=== PATIENT | female | born 1955 | race Caucasian/White ===

== ENCOUNTER 2019-06-15 13:07 | Observation (INO) ==
[2019-06-15] MEDS ORDERED: Ringers Solution, Lactated 1,000 ML IVC SCH (14:00)
[2019-06-15] MEDS ORDERED: Albuterol 2.5 MG/3 ML NEBULIZER IH ONE (14:00)
[2019-06-15] MEDS ORDERED: CeFAZolin Syr 2,000MG/20 ML 2,000 MG/20 ML SYRINGE IVPB ONE (14:00)
--- NOTE | 2019-06-15 14:00 | Anesthesia Evaluation PreOp ---
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 History: Other (anxiety) Other Medical History: Diabetes Type II, Thyroid (hypo), GERD Anesthesia History: Past Anesthesia (cisco, skin cancer left leg, left heel), Problems (mild PONV) : No Alcohol Use: none Drug use: none Medications and Allergies Atorvastatin [Lipitor] 40 mg PO HS 12/18/16 [History] Carvedilol 12.5 mg PO BID 12/18/16 [History] Omeprazole 20 mg PO QPM 12/18/16 [History] Levothyroxine [Synthroid] 25 mcg PO QAM 07/01/18 [History] Albuterol Sulfate 2.5 mg IH TID PRN 08/03/18 [History] Diclofenac Sodium [Voltaren] 1 applic TP BID PRN 08/03/18 [History] Loratadine [Allergy Relief] 10 mg PO QAM 08/03/18 [History] Meloxicam 15 mg PO DAILY 08/03/18 [History] Metformin HCl 1,000 mg PO BID 08/03/18 [History] Tramadol HCl [Ultram] 50 mg PO Q6H PRN 04/10/19 [History] Amlodipine Besylate 10 mg PO QAM 06/15/19 [History] Gabapentin [Neurontin] 300 mg PO BID 06/15/19 [History] Losartan Potassium [Cozaar] 100 mg PO QAM 06/15/19 [History] Multivitamin with Iron [Multivitamins with Iron] 1 tab PO DAILY 06/15/19 [History] Allergy/AdvReac Type Severity Reaction Status Date / Time oxycodone [From Percocet] Allergy Hives, Verified 06/15/19 13:40 Vomiting hydrochlorothiazide AdvReac Shakiness, Verified 06/15/19 13:40 Shortness of Breath meperidine [From Demerol] AdvReac Nausea Verified 06/15/19 13:40 - Meds/Allergy Pre-op Review Medications Reviewed: Yes Allergies Reviewed: Yes Beta Blockers on Current Med List: Yes (carvedilol) If Beta Blockers taken, Date/Time (Last Dose taken): 1000 Anesthesia Results - Labs Laboratory Tests 05/29/19 06/01/19 06/01/19 15:26 13:42 13:42 WBC Hgb Hct Plt Count PT 11.0 INR 1.0 APTT 34.5 Sodium 137 Potassium 4.3 Chloride 105 Carbon Dioxide 26 BUN 25 H Creatinine 1.07 Est GFR (Non-Af Amer) 52 L Hemoglobin A1c 6.7 H 06/01/19 13:42 WBC 8.5 Hgb 11.8 Hct 38.7 Plt Count 253 PT INR APTT Sodium Potassium Chloride Carbon Dioxide BUN Creatinine Est GFR (Non-Af Amer) Hemoglobin A1c - Imaging EKG: report reviewed (SINUS RHYTHM POSSIBLE ANTERIOR MYOCARDIAL INFARCTION, OF INDETERMINATE AGE) Additional studies: 04/2018 Stress Impressions: Negative dobutamine stress ECG and echocardiogram for ischemia. Findings: Study Quality * Technically adequate exam. Resting Echocardiogram * LVEF 60%. * Normal left ventricular structure and function. Stress Echocardiogram * Normal sinus rhythm. * No arrhythmias noted prior to exam beginning. * Negative for ischemia at the level of heart rate achieved. * No arrhythmias during exercise or recovery. * The patient demonstrated a normal blood pressure response. * Appropriate increase LVEF with stress. * No chest pain during stress procedure. Anesthesia Exam Vital Signs/O2 Sat/Glucose, Most Recent Temp Pulse Resp BP Pulse Ox 98.4 F 86 18 112/72 97 06/15/19 13:20 06/15/19 13:20 06/15/19 13:20 06/15/19 13:20 06/15/19 13:20 Blood Glucose* 110 Weight: 99 kg NPO (# of Hours): > 8 hr - HEENT Pupil (Motor): Pupils equal Mallampati: II Teeth: Normal - BATTERY PLATE REMOVER LOC: Oriented - Cardiac Rhythm: Regular Murmur: None - Pulmonary Breath Sounds: bilateral Clear Respiratory Effort: Symmetrical Anesthesia Assess/Plan ASA Score: 3 (HTN, COPD, RAVINDRA, BMI 36.6) Level of consciousness: Cooperative, Oriented Anesthetic Plan: Regional Nerve Block, MAC, Spinal Regional Nerve Block Plan: Adductor canal Monitoring Plan: Standard Monitors Recovery Plan: PACU
[2019-06-15] MEDS ORDERED: Scopolamine Patch 1.5 MG PATCH.TD72 TD ONE (14:10)
[2019-06-15] MEDS ORDERED: Gabapentin 300 MG CAPSULE PO ONE (14:10)
[2019-06-15] MEDS ORDERED: Celecoxib 100 MG CAPSULE PO ONE (14:10)
[2019-06-15] MEDS ORDERED: Acetaminophen IV 1,000 MG/100 ML INFUS..BTL IVPB ONE (14:10)
[2019-06-15] MEDS ORDERED: Ondansetron 4 MG/2 ML VIAL IVP ONE (14:12)
[2019-06-15] MEDS ORDERED: *HR* Promethazine 25 MG/ML VIAL IVP PRN (14:12)
[2019-06-15] MEDS ORDERED: *HR* Labetalol 20 MG/4 ML SYRINGE IVP PRN (14:12)
[2019-06-15] MEDS ORDERED: *HR* OxyCODONE ER (12 HR) 10 MG TABLET PO ONE (14:14)
--- NOTE | 2019-06-15 15:32 | History & Physical Report ---
Date of Encounter: 06/15/19 Time of Encounter: 15:31 24 Hour HP Update - Instructions Instructions: If the History and Physical is less than 30 days old and was completed prior to A.M. admission and or procedure and has NOT been updated on calendar day of procedure please complete this update prior to performing procedure. - Update Patient reports changes in Medical Condition: No Changes in examination, assessment, or condition: No Changes in Medication: No Preop tests/diagnostics Reviewed: Yes Surgery Remains Indicated: Yes Consent for Planned Operative Procedure(s) Verified: Yes - Pre-Operative Checklist Preoperative Checklist Indicated: No Prophylactic Antibiotic Ordered: Yes Is VTE Prophylaxis Indicated?: Yes
[2019-06-15] MEDS ORDERED: Lidocaine/EPI 1:200k 1% PF 10 ML VIAL ONE (15:43)
[2019-06-15] MEDS ORDERED: ROPIVACAINE/PF/NS 0.25% 1 EACH SYRINGE INTRAART ONE (15:44)
[2019-06-15] MEDS ORDERED: Ropivacaine/PF 0.5% 24.62 ML, EPINEPHrine 0.25 MG, Ketorolac 15 MG, Water for inj. (ste... IR ONE (15:45)
[2019-06-15] MEDS ORDERED: *HR* Midazolam HCl 2 MG/2 ML VIAL ONE ×2 (15:45→17:02)
[2019-06-15] MEDS ORDERED: *HR* FentaNYL (PF) 100 MCG/2 ML VIAL ONE ×2 (15:45→17:02)
--- NOTE | 2019-06-15 15:49 | Discharge Summary ---
<Dwayne Araya M - Last Filed: 06/15/19 15:44> Date of Encounter: 06/15/19 - Discharge Diagnosis (1) Arthritis of right knee Priority: Primary Status: Acute (2) HTN (hypertension) Priority: Secondary Status: Acute Qualifiers: Hypertension type: unspecified Qualified Code(s): I10 - Essential (primary) hypertension (3) Diabetes Priority: Secondary Status: Acute Qualifiers: Diabetes mellitus complication status: without complication (4) RAVINDRA (obstructive sleep apnea) Priority: Secondary Status: Acute - Hospital Course Hospital course: Ms. Umaña is a 63 year old female - Time Spent with Patient Total time spent providing and/or coordinating discharge services: - Discharge Medications Prescriptions: New Docusate [Colace] 100 mg PO BID 5 Days #10 capsule Acetaminophen [Pain Relief] 500 mg PO Q6H 7 Days #28 tablet Tramadol HCl [Ultram] 50 mg PO QID PRN 5 Days #20 tab PRN Reason: Pain Aspirin Enteric Coated [Aspirin EC] 325 mg PO DAILY 10 Days #10 tablet.dr Continued Levothyroxine [Synthroid] 25 mcg PO QAM Loratadine [Allergy Relief] 10 mg PO QAM Albuterol Sulfate 2.5 mg IH TID PRN PRN Reason: Shortness Of Breath Metformin HCl 1,000 mg PO BID Amlodipine Besylate 10 mg PO QAM Gabapentin [Neurontin] 300 mg PO BID Losartan Potassium [Cozaar] 100 mg PO QAM Multivitamin with Iron [Multivitamins with Iron] 1 tab PO DAILY Carvedilol 12.5 mg PO BID Atorvastatin [Lipitor] 40 mg PO HS Omeprazole 20 mg PO QPM Discontinued Meloxicam 15 mg PO DAILY Diclofenac Sodium [Voltaren] 1 applic TP BID PRN PRN Reason: Pain Tramadol HCl [Ultram] 50 mg PO Q6H PRN PRN Reason: Pain Home Medications: Atorvastatin [Lipitor] 40 mg PO HS 12/18/16 [History] Carvedilol 12.5 mg PO BID 12/18/16 [History] Omeprazole 20 mg PO QPM 12/18/16 [History] Levothyroxine [Synthroid] 25 mcg PO QAM 07/01/18 [History] Albuterol Sulfate 2.5 mg IH TID PRN 08/03/18 [History] Loratadine [Allergy Relief] 10 mg PO QAM 08/03/18 [History] Metformin HCl 1,000 mg PO BID 08/03/18 [History] Acetaminophen [Pain Relief] 500 mg PO Q6H 7 Days #28 tablet 06/15/19 [Rx] Amlodipine Besylate 10 mg PO QAM 06/15/19 [History] Docusate [Colace] 100 mg PO BID 5 Days #10 capsule 06/15/19 [Rx] Gabapentin [Neurontin] 300 mg PO BID 06/15/19 [History] Losartan Potassium [Cozaar] 100 mg PO QAM 06/15/19 [History] Multivitamin with Iron [Multivitamins with Iron] 1 tab PO DAILY 06/15/19 [History] Tramadol HCl [Ultram] 50 mg PO QID PRN 5 Days #20 tab 06/15/19 [Rx] Aspirin Enteric Coated [Aspirin EC] 325 mg PO DAILY 10 Days #10 tablet. 06/19/19 [Rx] Allergies/Adverse Reactions: Allergy/AdvReac Type Severity Reaction Status Date / Time oxycodone [From Percocet] Allergy Nausea, Verified 06/15/19 15:33 Vomiting hydrochlorothiazide AdvReac Shakiness, Verified 06/15/19 13:40 Shortness of Breath meperidine [From Demerol] AdvReac Nausea Verified 06/15/19 13:40 Primary care physician: Franchesca Noe CNP Labs on day of discharge: Labs from last 24 hours 06/15/19 06/15/19 14:36 13:17 POC Glucose 110 H Blood Type A POSITIVE Antibody Screen NEGATIVE - Patient Status Disposition: Home Health Service Condition: Good - Discharge Instructions Follow Up With: Franchesca Noe CNP [Primary Care Provider] - Additional Instructions: Discharge Instructions: Total Knee Replacement Please call [facility] ([phone]), your Primary Care Physician, or report to the Emergency Room if you have any of the following symptoms: Nausea, vomiting, fever greater that 101.5, swelling, chest pain, shortness of breath, increased pain/redness/drainage/odor for your incision site, numbness/tingling, or any other concerning symptoms. ACTIVITY:Weight-bearing as tolerated. You may progress off support (crutches or walker) as tolerated. Incentive Spirometer 10 times an hour. MEDICATIONS: Upon discharge resume your home medications. Take all the medications as prescribed. Take a stool softener if taking narcotic pain medications. Stool softeners are only effective if you drink enough fluids. Drink 6-8 glass of water or fluids a day, unless this is not allowed for another health problem. Despite using stool softeners, if you haven't had a bowel movement in 3 days, please switch to a gentle laxative. Gentle laxatives are sold over the counter. You should have a bowel movement within 24 hours, if not call the office. You will be discharged from the hospital with a prescription for pain medication . You are encouraged to decrease the use of narcotic pain medication as tolerated. Should you require a refill, please call the office. [facility] prescribes narcotic pain medication for only 4-6 weeks after surgery. If you require pain medication beyond this time period, you may be referred to your Primary Care Physician or to the Pain Clinic for further evaluation. Plan ahead for refills on pain medication as many narcotics either need to be picked up at the office or mailed. It is best to call 48-72 hours in advance of needing a prescription refill so you don't run out of medication. To help control the post-operative pain, you may take NSAIDs (Aleve,Advil, Motrin, Ibuprofen, Naprosyn) or Tylenol as prescribed on the bottle in addition to the pain medication. ANTICOAGULATION (blood thinners): Continue your Aspirin, Lovenox or Coumadin as prescribed to help prevent a blood clot in the leg or in the lungs. As long as your incision remains dry and you tolerate the NSAIDs (Aleve, Advil, Motrin, ibuprofen, naprosyn), it is OK to use the NSAIDS while you are taking your anticoagulation medication. Should your incision start to drain, stop the NSAID and contact our office. Common symptoms of blood clot in the legs include: localized pain, swelling, calf tenderness, redness or discoloration of the skin. Blood clot in the lung symptoms include: shortness of breath, rapid pulse, sweating, and chest pain that worsens with deep breathing, coughing up blood, lightheadedness, feelings of anxiety. If you experience any of these symptoms notify your physician immediately, go to the emergency room, or if having trouble breathing, call 911. WOUND CARE: Leave the dressing on for 7 to 10days. You may change the dressing if it becomes saturated greater than 50%. Do not get the dressing wet at anytime. Wash your hands with antibacterial soap, rinse and dry prior to any wound care. If you have brent the visiting nurse or rehab facility can remove the stapes 10-14 days after surgery and place steri-strips across the wound. Leave the steri-strips in place until they fall off on their won. You may let water from the shower run on top of the steri-strips. If you do not have a visiting nurse or rehab facility, you will need to return to the office at 10-14 days for the brent to be removed. If you have itching or redness around the dressing call the office. FOLLOW-UP: Please follow up with your surgeon in the orthopedic clinic in 4 weeks from the day of surgery. If you have brent that need to be removed, you will need to come back to the office in 10-14 days from the day of surgery. <Ella Garibay E - Last Filed: 06/19/19 16:59> Orders not resulted at time of discharge: Pending orders 06/15/19 18:13 Surgical Pathology [PTH] Routine Date of Encounter: 06/19/19 Time of Encounter: 16:53 - Discharge Diagnosis (1) Status post total right knee replacement Priority: Primary Status: Acute (2) Arthritis of right knee Priority: Primary Status: Chronic (3) Thyroid disorder Priority: Secondary Status: Chronic (4) Diabetes Priority: Secondary Status: Chronic Qualifiers: Diabetes mellitus type: type 2 Diabetes mellitus assistant terminal manager insulin use: unspecified assistant terminal manager insulin use status Diabetes mellitus complication status: with other specified complication Qualified Code(s): E11.69 - Type 2 diabetes mellitus with other specified complication (5) HTN (hypertension) Priority: Secondary Status: Chronic Qualifiers: Hypertension type: unspecified Qualified Code(s): I10 - Essential (primary) hypertension (6) RAVINDRA on CPAP Priority: Secondary Status: Chronic (7) Obesity Priority: Secondary Status: Chronic Qualifiers: Obesity type: unspecified obesity type Obesity classification: unspecified obesity classification Serious obesity comorbidity presence: unspecified whether serious comorbidity present Qualified Code(s): E66.9 - Obesity, unspecified - Hospital Course Hospital course: Ms. Umaña is a 63 year old female s/p Right robotic-assisted Total knee replacement [arthritis] 06/15/19 The patient's postoperative course was complicated by decreased renal function likely related to dehydration secondary to nausea. Patient was given gentle IV hydration with resolution of apparent renal function depression. Patient's nausea slowly seemed to improve with medication change to Tramadol. Progressed from intravenous analgesic needs to oral analgesic needs only. Remained neurovascularly intact and mobilized satisfactorily. All radiographic studies were satisfactory. Patient course and disposition discussed with Dr. Raymond. Patient is discharged to home with home health with plan for rehabilitation and outpatient orthopedic follow up has been arranged. - Time Spent with Patient Total time spent providing and/or coordinating discharge services: Date of admission: 06/16/19 06:56 Primary care physician: Franchesca Noe CNP Consults: 06/15/19 20:06 Consult to Nutrition [CONS] Routine Comment: Consulting Provider: NUTRITION Reason for Dietary Consult: Other Other:: Proper nutrition to facilitate wound healing Consult to Occupational Therapy [CONS] Routine Comment: Evaluate, develop and implement POC Reason for Consult: post knee surgery Does patient have active BEDREST order?: No Is patient medically & hemodynamically stable?: Yes Consult to Orthopedic Navigator [CONS] [CONS] Routine Consult to Physical Therapy [CONS] Routine Comment: Evaluate, develop and impliment POC Reason for Consult: post knee surgery Does patient have active BEDREST order?: No Is patient medically & hemodynamically stable?: Yes Consult to Anesthesiologist Assistant [CONS] Routine Reason for SW Consult: post op joint replacement RT Post Op Consult [CONS] Routine Discharging clinician: Dhruv Raymond Anticipated date of discharge: 06/19/19 - VTE Documentation of Mechanical Device: Venous foot pump, device Labs on day of discharge: Labs from last 24 hours 06/17/19 06/17/19 06/17/19 07:01 05:48 05:48 WBC 11.1 RBC 3.63 L Hgb 10.1 L Hct 32.7 L MCV 90.1 MCH 27.8 L MCHC 30.9 L RDW 14.4 Plt Count 206 MPV 11.1 Immature Gran % 0.3 Seg Neutrophils % 63.5 Lymphocytes % 26.6 Monocytes % 8.8 Eosinophils % 0.5 Basophils % 0.3 Neutrophils # 7.1 Lymphocytes # 3.0 Monocytes # 1.0 Eosinophils # 0.1 Basophils # 0.0 Sodium 137 Potassium 4.0 Chloride 101 Carbon Dioxide 26 BUN 29 H Creatinine 1.24 H Est GFR ( Amer) 53 L Est GFR (Non-Af Amer) 44 L BUN/Creatinine Ratio 23 Glucose 125 H POC Glucose 109 H Calculated Osmolality 291 Calcium 8.7 06/16/19 06/16/19 06/16/19 19:11 16:47 11:45 WBC RBC Hgb Hct MCV MCH MCHC RDW Plt Count MPV Immature Gran % Seg Neutrophils % Lymphocytes % Monocytes % Eosinophils % Basophils % Neutrophils # Lymphocytes # Monocytes # Eosinophils # Basophils # Sodium Potassium Chloride Carbon Dioxide BUN Creatinine Est GFR ( Amer) Est GFR (Non-Af Amer) BUN/Creatinine Ratio Glucose POC Glucose 110 H 105 H 147 H Calculated Osmolality Calcium 06/16/19 07:35 WBC RBC Hgb Hct MCV MCH MCHC RDW Plt Count MPV Immature Gran % Seg Neutrophils % Lymphocytes % Monocytes % Eosinophils % Basophils % Neutrophils # Lymphocytes # Monocytes # Eosinophils # Basophils # Sodium Potassium Chloride Carbon Dioxide BUN Creatinine Est GFR ( Amer) Est GFR (Non-Af Amer) BUN/Creatinine Ratio Glucose POC Glucose 185 H Calculated Osmolality Calcium - Impressions ITS Impressions Knee X-Ray 06/15/19 01:00 IMPRESSION: Total knee arthropasty without acute hardware complication. D/ / Florin Nevarez MD / Florin Nevarez MD Interpreting Provider: Florin Nevarez MD - Patient Status Functional capacity at discharge: uses cane/walker Overall status at discharge: patient is progressing back to baseline - Diet and Activity Activity: as per physical therapy Diet: advance to your usual diet
--- NOTE | 2019-06-15 16:17 | Anesthesia Procedures ---
Date of Encounter: 06/15/19 Time of Encounter: 16:07 Procedures: Anesthesia - Epidural/Spinal Patient ID/Chart reviewed: Yes Patient examined: Yes Supplemental Oxygen: Nasal Cannula Supplemental Oxygen Rate (L/min): 2 Sedation: Versed (mg): 2 Sedation: Fentanyl (mcg): 100 Site Prep: Aseptic Technique, Sterile prep and drape, Povidone-Iodine 1% Patient position: upright Local Anesthetic: Lidocaine 1% Amount of Local Anesthetic used: 3 Interspace Used: L4-L5 Blood: No CSF: Yes (SPINAL ) Paresthesia: No Spinal Needle Gauge: 22 (PARAMEDIAN APPROACH) Spinal Dose: BUPIVICAINE 0.5% PF WITH EPI WASH Vitals + FHT's: Vital Signs - Last 8 Hours Temp Pulse Resp BP Pulse Ox 06/15/19 16:13 73 16 121/73 98 06/15/19 15:58 77 15 138/86 94 06/15/19 14:13 18 112/72 97 06/15/19 13:20 98.4 F 86 18 112/72 97 Intake and Output 06/15/19 06/15/19 06/15/19 07:59 15:59 23:59 Other: Weight 99.79 kg Blood Glucose* 110 Patient Weight 06/15/19 23:59 Weight 99.79 kg - Nerve Block Procedure Date: 06/15/19 Time: 16:07 Allergies/Adv Reactions: MULTIPLE SEE CHART Pre-op Diagnosis: RIGHT TOTAL KNEE ARTHRITIS Surgical Procedure: RIGHT TOTAL KNEE Checklist: Correct Patient Identifier, Correct procedure, History checked Correct side: Right Blood Thinner: No Monitor Applied: EKG, BP, Pulse Oximetry Supplemental Oxygen via Nasal Cannula (L/min): 2 Sedation: Versed (mg): 2 Sedation: Fentanyl (mcg): 100 Indication: Post Op Analgesia Pre-op Neuro Deficits: No Block Type: Other (ADDUCTOR CANAL ) Catheter placed: No Sterile Technique: Yes Ultrasound used: Yes Anatomy identified: Yes Visual spread of Local: Yes Neuro Stimulation: No Smooth Injection of Local: Yes Pain with Injection of Local: No Prep: Chlorhexadine Needle: 21 x 100 mm Stimuplex Local: Ropivacaine (0.25% ) Volume (cc): 20 Number of Attempts: 1 Complications: None/effective block Vitals: Vital Signs - Last 8 Hours Temp Pulse Resp BP Pulse Ox 06/15/19 16:13 73 16 121/73 98 06/15/19 15:58 77 15 138/86 94 06/15/19 14:13 18 112/72 97 06/15/19 13:20 98.4 F 86 18 112/72 97 Intake and Output 06/15/19 06/15/19 06/15/19 07:59 15:59 23:59 Other: Weight 99.79 kg Blood Glucose* 110 Patient Weight 06/15/19 23:59 Weight 99.79 kg
[2019-06-15] MEDS ORDERED: Ondansetron 4 MG/2 ML VIAL ONE ×2 (16:19→17:02)
[2019-06-15] MEDS ORDERED: *HR* PHENYLEPHRINE 1,000 MCG/10 ML SYRINGE IVP ONE ×2 (16:19→17:15)
[2019-06-15] MEDS ORDERED: Lidocaine HCL 4 ML Topical Solution (Laryng-O-Jet Kit Sterile Pak) TP ONE (17:01)
[2019-06-15] MEDS ORDERED: Ethanol\\Acetic Acid\\Na Ace\\Ben 1,000 ML IRRIG.SOLN IR ONE (17:01)
[2019-06-15] MEDS ORDERED: *HR* Rocuronium Bromide 50 MG/5 ML VIAL ONE (17:02)
[2019-06-15] MEDS ORDERED: *HR* Propofol 200 MG/20 ML VIAL IVP ONE (17:02)
[2019-06-15] MEDS ORDERED: Lidocaine -MPF 2% 2 ML VIAL ONE (17:02)
[2019-06-15] MEDS ORDERED: *HR* Succinylcholine 200 MG/10 ML VIAL IVP ONE (17:02)
[2019-06-15] MEDS ORDERED: Dexamethasone 4 MG/ML VIAL ONE (17:02)
[2019-06-15] MEDS ORDERED: Propofol 500 MG/50 ML INFUS..BTL ONE ×2 (17:07→18:03)
[2019-06-15] MEDS ORDERED: Tranexamic Acid 1,000 MG/10 ML VIAL ONE (17:07)
--- NOTE | 2019-06-15 18:18 | Orthopedic Operative Note ---
Date of procedure: 06/15/19 Pre-op diagnosis: Right knee arthritis Post-op diagnosis: same Procedure: Procedure: Right robotic-assisted Total knee replacement Estimated blood loss: 200 cc Hardware: Metal and polyethylene replacement. [place] Femur: 4 Tibia: 4 TS insert: 9 Patella: 36 Exam Under anesthesia: 26 degree flexion contracture 6 degrees varus as calculated by the robot full flexion and no instability Procedural Notes: Grade 4 arthritic changes all 3 compartments Operative procedure: The patient was brought to the operating room and placed on the operating room table. After general anesthesia was administered the operative knee was examined. Findings were noted in the exam under anesthesia. The operative extremity was prepped and draped in sterile surgical fashion. The patient received IV antibiotics prior to skin incision. A standard midline incision was made centered over the patella. The incision was made through the skin and subcutaneous tissue. A medial parapatellar tendon approach was performed. Care was taken to preserve tissue along the medial aspect of the patella. And to protect the patella tendon. The deep MCL was released off the medial tibia. The infra patella fat pad was excised. The patella was everted and cut was made at the level of the insertion of the quadriceps and patella tendon. The patella was sized the guide was seated and the lug holes are drilled. Knee was brought into flexion. Patient noted to have grade 4 arthritic changes all 3 compartments Steinmann pins were placed in the tibia and the femur for the tibial and femoral arrays respectively. Checkpoints were also placed in the tibia and the femur for calculation purposes. The knee including the femur and the tibial registered. Osteophytes, ACL and PCL were excised at this point. Extension and flexion were assessed with a valgus stress components were adjusted on the computer to balance the knee. Femoral cuts were made first with robotic assistance, these included the anterior cut posterior cuts chamfer cuts. Tibial cut was then performed with robotic assistance as well. Bone fragments were removed, as well as the medial and lateral meniscus. The size 4 femoral guide was seated box cut was made lug holes are drilled. The size 4 tibial tray was seated and prepared with the fin cutter. Trial reduction with the 1 TS Babs revealed extension loss of 1 degree and 1 degree varus full flexion. No varus valgus instability. Trial reduction revealed excellent patella tracking. All trial components were removed all bony surfaces were irrigated. The Tibia was seated followed by the femur, The selected Babs size was seated and secured patella. Patient had similar findings for motion and stability. The knee was closed by the PA. The knee was then irrigated out with 2 L of pulse irrigation. The extensor mechanism was closed with #2 FiberWire suture and #2 PDS suture. The subcutaneous tissue was then irrigated and closed deep with #1 PDS suture superficially with 0 PDS suture and skin was closed with zip tie The patient was then placed in a sterile dressing and a postoperative brace extubated and transferred to recovery room in stable condition. Anesthesia: spinal Surgeon: Dhruv Raymond Was there an assistant pressman present: Yes Computer Builder: Dwayne Araya Estimated blood loss (cc): 200 Disposition: PACU
[2019-06-15] MEDS: *HR* HYDROmorphone (PF) 1 MG/ML SYRINGE IVP PRN ×2 (19:13→19:20)
[2019-06-15 19:45] LABS: Hematocrit 37.6 % (35.3-44.9); Hemoglobin 11.5 g/dL (11.5-15.4)
--- NOTE | 2019-06-15 19:48 | Physician Discharge Referral ---
ExtendedCare Referral Info Transfer To: ECF - CANCEL DOCUMENT - PATIENT GOING HOME WITH HOME HEALTH Provider in Charge: Dr. Dhruv Raymond - Diagnosis (1) Status post total right knee replacement Priority: Primary Status: Acute (2) Arthritis of right knee Priority: Primary Status: Chronic (3) Thyroid disorder Priority: Secondary Status: Acute (4) RAVINDRA on CPAP Priority: Secondary Status: Chronic (5) Obesity Priority: Secondary Status: Chronic (6) Diabetes Priority: Secondary Status: Chronic (7) HTN (hypertension) Priority: Secondary Status: Chronic Expected Duration of Placement: less than 30 days Prognosis: Good Aware of Diagnosis: Patient Aware of Prognosis: Patient - Transfer Medications Prescriptions: Aspirin Enteric Coated [Aspirin EC] 325 mg PO BID 10 Days #20 tablet. [place] Medications: Atorvastatin [Lipitor] 40 mg PO HS 12/18/16 [History] Carvedilol 12.5 mg PO BID 12/18/16 [History] Omeprazole 20 mg PO QPM 12/18/16 [History] Levothyroxine [Synthroid] 25 mcg PO QAM 07/01/18 [History] Albuterol Sulfate 2.5 mg IH TID PRN 08/03/18 [History] Diclofenac Sodium [Voltaren] 1 applic TP BID PRN 08/03/18 [History] Loratadine [Allergy Relief] 10 mg PO QAM 08/03/18 [History] Meloxicam 15 mg PO DAILY 08/03/18 [History] Metformin HCl 1,000 mg PO BID 08/03/18 [History] Tramadol HCl [Ultram] 50 mg PO Q6H PRN 04/10/19 [History] Acetaminophen [Pain Relief] 500 mg PO Q6H 7 Days #28 tablet 06/15/19 [Rx] Amlodipine Besylate 10 mg PO QAM 06/15/19 [History] Docusate [Colace] 100 mg PO BID 5 Days #10 capsule 06/15/19 [Rx] Gabapentin [Neurontin] 300 mg PO BID 06/15/19 [History] Losartan Potassium [Cozaar] 100 mg PO QAM 06/15/19 [History] Multivitamin with Iron [Multivitamins with Iron] 1 tab PO DAILY 06/15/19 [History] Tramadol HCl [Ultram] 50 mg PO QID PRN 5 Days #20 tab 06/15/19 [Rx] Aspirin Enteric Coated [Aspirin EC] 325 mg PO BID 10 Days #20 tablet. 06/19/19 [Rx] Allergies/Adverse Reactions: Allergy/AdvReac Type Severity Reaction Status Date / Time oxycodone [From Percocet] Allergy Nausea, Verified 06/15/19 15:33 Vomiting hydrochlorothiazide AdvReac Shakiness, Verified 06/15/19 13:40 Shortness of Breath meperidine [From Demerol] AdvReac Nausea Verified 06/15/19 13:40 - Respiratory Orders Smoking Cessation: Smoking cessation has been advised. For more information, call the [place] Tobacco Quit Line at 5-154-VSMF-NOW. - Ancillary Orders May use pressure relief devices daily prn, May go on KIKE w/family/respon green party w/meds at nurse discretion PRN, May consult with Dentist, Student Services Rep, Sculpture Conservator PRN - Mobility Orders Chair, Ambulate - Rehabiliation Orders Rehab Potential: Good Rehab Orders: Evaluation for Physical Therapy, Evaluation for Occupational Therapy Other: Total Knee replacement Precautions x 6 weeks Apply cold therapy wrap 3-6x/day for 20 minutes at a time. Encourage ambulation throughout the day and incentive spirometer 10x/hour. Elevate affected extremity above heart as tolerated. Brace: Wear knee immobilizer at night x 2 weeks. Opsite placed. Keep dressing intact until first follow up appointment. If greater than 50% saturated, notify office, remove dressing and place appropriate dressing back in place. Leave Zipline intact. Opsite dressing is water resistant, not water-proof. OK to shower, but do not get dressing wet. - Treatments Skin tear care topically daily PRN per policy - Diet Orders Regular CERTIFICATION: I certify that the transfer of the above named patient to an Extended Care Facility is necessary for the continuing treatment of the diagnosis listed. The above information is true and accurate reflection of patient's current condition. Confidential - Redisclosure prohibited without a patient's written consent.
[2019-06-15] MEDS ORDERED: traMADol 50 MG TABLET PO PRN (20:06)
[2019-06-15] MEDS ORDERED: MOM Conc 10 ML UD.LIQ PO PRN (20:06)
[2019-06-15] MEDS ORDERED: Temazepam 15 MG CAPSULE PO PRN (20:06)
[2019-06-15] MEDS ORDERED: D5% in Water 1,000 ML IVC PRN (20:06)
[2019-06-15] MEDS ORDERED: Naloxone 0.4 MG/ML INJ IVP PRN (20:06)
[2019-06-15] MEDS ORDERED: Dextrose Gel 15 GM/37.5 ML TUBE PO PRN ×2 (20:06)
[2019-06-15] MEDS ORDERED: *HR* Dextrose 50 % in Water (Syg) 50 ML SYRINGE IVP PRN (20:06)
[2019-06-15] MEDS ORDERED: Sennosides 8.6 MG TABLET PO PRN (20:06)
[2019-06-15] MEDS ORDERED: Albuterol 2.5 MG/3 ML NEBULIZER IH PRN (20:06)
--- NOTE | 2019-06-15 20:07 | Anesthesia Evaluation Post Op ---
Date of Encounter: 06/15/19 Time of Encounter: 20:05 - Vital Signs Vital Signs: Vital Signs/O2 Sat/Glucose, Most Current Temp Pulse Resp BP Pulse Ox 06/15/19 19:52 97.3 F L 55 12 136/77 97 06/15/19 19:42 61 12 130/81 97 06/15/19 19:32 65 12 138/72 96 06/15/19 19:22 97.6 F 68 14 141/77 96 06/15/19 19:12 61 14 156/78 96 06/15/19 19:02 66 16 147/82 99 06/15/19 18:52 98.2 F 72 18 146/88 100 06/15/19 17:03 70 14 131/89 100 06/15/19 16:53 66 15 130/75 100 06/15/19 16:41 70 15 115/69 99 06/15/19 16:39 65 15 121/65 99 06/15/19 16:35 71 16 121/64 99 06/15/19 16:33 67 17 122/68 99 06/15/19 16:30 68 15 128/67 99 06/15/19 16:25 70 15 125/68 99 06/15/19 16:22 76 15 143/74 99 06/15/19 16:19 72 16 134/82 99 06/15/19 16:13 73 16 121/73 98 - Lungs Lungs: Clear Ascult./Percussion - Airway Airway: Non-obstructed - Cardiovascular Baseline Rhythm - Mental Status Mental Status: Alert & Oriented, Answers Appropriately - Pain Pain Scale: 4 Pain Scale used: Numeric (1 - 10) - Nausea Vomiting Nausea Vomiting: Not Present - Hydration Hydration: Tolerates oral liquids, Has not voided - Discharge PostOp Status: Transfer Patient to floor Anes Supervising Prov Stmt: Pt seen/evaluated, VSS and has met criteria for discharge to floor. - MD Ester
[2019-06-15] MEDS: Insulin LISPRO 300 UNITS/3 ML VIAL SQ SCH ×2 (21:37)
[2019-06-15] MEDS: Ascorbic Acid 500 MG TABLET PO SCH (21:52)
[2019-06-15] MEDS: Gabapentin 300 MG CAPSULE PO SCH (21:52)
[2019-06-15] MEDS: *HR* Metformin 500 MG TABLET PO SCH (21:52)
[2019-06-15] MEDS: *HR* Enoxaparin 30 MG/0.3 ML SYRINGE SQ SCH (21:53)
[2019-06-16] MEDS: *HR* Enoxaparin 30 MG/0.3 ML SYRINGE SQ SCH ×2 (05:08→16:48)
[2019-06-16] MEDS: HYDROcodone BIT/Homatropine 5 MG TABLET PO PRN (05:08)
[2019-06-16] MEDS: Levothyroxine 25 MCG TABLET PO SCH (05:08)
[2019-06-16] MEDS: Ondansetron 4 MG/2 ML VIAL IVP PRN (05:14)
--- NOTE | 2019-06-16 06:51 | Orthopedics Progress Note ---
Date of Encounter: 06/16/19 Time of Encounter: 06:51 Subjective Interval history: Patient was seen this morning doing well without complaints. Afebrile vital signs stable. Operative extremity: Neurovascularly intact Dressing clean dry and intact Calves nontender Assessment and plan: Continue with postoperative care Patient unsafe to go home, will require ECF, converting to inpatient status. Objective Vital signs: Vital Signs Temp Pulse Resp BP Pulse Ox 06/16/19 03:14 98.3 F 77 16 138/86 93 06/16/19 00:36 98.2 F 81 17 145/89 96 06/15/19 23:11 97.8 F 80 17 135/78 96 06/15/19 22:11 98.0 F 65 17 129/86 97 06/15/19 21:11 98.1 F 68 16 133/85 98 06/15/19 20:41 98.0 F 72 17 130/82 98 06/15/19 20:11 98.0 F 65 16 150/85 97 06/15/19 20:10 96 06/15/19 19:52 97.3 F L 55 12 136/77 97 06/15/19 19:42 61 12 130/81 97 06/15/19 19:32 65 12 138/72 96 06/15/19 19:22 97.6 F 68 14 141/77 96 06/15/19 19:12 61 14 156/78 96 06/15/19 19:02 66 16 147/82 99 06/15/19 18:52 98.2 F 72 18 146/88 100 06/15/19 17:03 70 14 131/89 100 06/15/19 16:53 66 15 130/75 100 06/15/19 16:41 70 15 115/69 99 06/15/19 16:39 65 15 121/65 99 06/15/19 16:35 71 16 121/64 99 06/15/19 16:33 67 17 122/68 99 06/15/19 16:30 68 15 128/67 99 06/15/19 16:25 70 15 125/68 99 06/15/19 16:22 76 15 143/74 99 06/15/19 16:19 72 16 134/82 99 06/15/19 16:13 73 16 121/73 98 06/15/19 15:58 77 15 138/86 94 06/15/19 14:13 18 112/72 97 06/15/19 13:20 98.4 F 86 18 112/72 97 Intake and Output 06/15/19 06/15/19 06/16/19 15:59 23:59 07:59 Intake Total 500 / 500 340 / 340 Output Total 1000 / 1000 402 / 402 Balance -500 / -500 -62 / -62 Intake: IV Fluids 20 / 20 100 / 100 Ancef Syringe 2,000 MG/20 ML 2, 20 / 20 000 mg In 20 ml @ 200 mls/hr IVPB PREOP ONE Rx#:[id number] Ancef 2,000 MG In 0.9 % Sodium 100 / 100 Chloride 100 ML @ 200 mls/hr IVPB Q8HR [facility] Rx#:[id number] Oral 480 / 480 240 / 240 Output: Urine 800 / 800 402 / 402 Estimated Blood Loss 200 / 200 Other: Weight 99.79 kg 99.6 kg Blood Glucose* 110 147 176 Patient Weight 06/16/19 23:59 Weight 99.6 kg - Labs CBC & BMP: 06/15/19 19:27 Labs: Abnormal lab results POC Glucose 176 mg/dL (70-99) H 06/16/19 00:32 Consult Discharge Plan - Plan Referrals: Franchesca Noe, [employer]IST [employer] [Primary Care Provider] - Prescriptions: Aspirin Enteric Coated [Aspirin EC] 325 mg PO DAILY 10 Days #20 tablet.dr Docusate [Colace] 100 mg PO BID 5 Days #10 capsule Ibuprofen [Motrin] 600 mg PO Q6HR PRN 7 Days #28 tab PRN Reason: Pain Acetaminophen [Pain Relief] 500 mg PO Q6H 7 Days #28 tablet Tramadol HCl [Ultram] 50 mg PO QID PRN 5 Days #20 tab PRN Reason: Pain
[2019-06-16 07:32] LABS: Basophils % 0.1 %; Hematocrit 36.3 % (35.3-44.9); Hemoglobin 11.2 g/dL (11.5-15.4); Immature Granulocytes % 0.5 % (0-4); Lymphocytes # 0.8 K/mcL (0.6-4.6); Lymphocytes % 8.3 %; Mean Corpuscular HGB Conc 30.9 g/dL (31.6-35.5); Mean Corpuscular Hemoglobin 28.1 pg (28.0-33.3); Mean Corpuscular Volume 91.2 fL (83.0-100.0); Mean Platelet Volume 11.3 fL (9.4-12.4); Monocytes # 0.3 K/mcL (0.0-1.3); Monocytes % 2.7 %; Neutrophils # 8.4 K/mcL (1.6-8.9); Platelet Count 233 K/mcL (140-400); Red Blood Count 3.98 M/mcL (3.82-4.97); Red Cell Distribution Width 13.9 % (11.5-14.5); Segmented Neutrophils % 88.4 %; White Blood Count 9.5 K/mcL (4.3-11.1)
[2019-06-16 07:53] LABS: BUN/Creatinine Ratio 22 (6-26); Blood Urea Nitrogen 23 mg/dL (8-23); Calcium 9.3 mg/dL (8.6-10.3); Carbon Dioxide 26 mEq/L (23-29); Chloride 98 mEq/L (98-107); Glucose 182 mg/dL (70-105); Osmolality,Calculated 286 (280-300); Potassium 4.8 mEq/L (3.5-5.1); Sodium 134 mEq/L (136-145); eGFR For African Americans > 60 (> 60); eGFR For Non-African Americans 54 (> 60)
[2019-06-16] MEDS ORDERED: [UNRECOGNIZED DRUG - OTHER] PO SCH (09:00)
[2019-06-16] MEDS: Insulin LISPRO 300 UNITS/3 ML VIAL SQ SCH ×4 (09:46→20:24)
[2019-06-16] MEDS: Gabapentin 300 MG CAPSULE PO SCH ×3 (11:11→20:21)
[2019-06-16] MEDS: *HR* Metformin 500 MG TABLET PO SCH ×2 (11:11→16:51)
[2019-06-16] MEDS: amLODIPine 5 MG TABLET PO SCH (11:12)
[2019-06-16] MEDS: Multivit/Ca/Min/Fe/FA 1 TAB TABLET PO SCH (11:12)
[2019-06-16] MEDS: Loratadine 10 MG TABLET PO SCH (11:15)
[2019-06-16] MEDS: Ascorbic Acid 500 MG TABLET PO SCH ×2 (11:15→16:51)
[2019-06-16] MEDS: Ringers Solution, Lactated 1,000 ML IVC SCH (20:48)
[2019-06-17] MEDS: *HR* HYDROcodone/Acet 10/325 mg TABLET PO PRN (03:02)
[2019-06-17] MEDS: Levothyroxine 25 MCG TABLET PO SCH (05:35)
[2019-06-17] MEDS: *HR* Enoxaparin 30 MG/0.3 ML SYRINGE SQ SCH ×2 (05:35→17:13)
[2019-06-17] MEDS: Ringers Solution, Lactated 1,000 ML IVC SCH ×2 (05:58→19:55)
[2019-06-17 06:32] LABS: Basophils % 0.3 %; Eosinophils # 0.1 K/mcL (0.0-0.6); Eosinophils % 0.5 %; Hematocrit 32.7 % (35.3-44.9); Hemoglobin 10.1 g/dL (11.5-15.4); Immature Granulocytes % 0.3 % (0-4); Lymphocytes % 26.6 %; Mean Corpuscular HGB Conc 30.9 g/dL (31.6-35.5); Mean Corpuscular Hemoglobin 27.8 pg (28.0-33.3); Mean Corpuscular Volume 90.1 fL (83.0-100.0); Mean Platelet Volume 11.1 fL (9.4-12.4); Monocytes % 8.8 %; Neutrophils # 7.1 K/mcL (1.6-8.9); Platelet Count 206 K/mcL (140-400); Red Blood Count 3.63 M/mcL (3.82-4.97); Red Cell Distribution Width 14.4 % (11.5-14.5); Segmented Neutrophils % 63.5 %; White Blood Count 11.1 K/mcL (4.3-11.1)
[2019-06-17 06:48] LABS: Calcium 8.7 mg/dL (8.6-10.3)
[2019-06-17] MEDS: Insulin LISPRO 300 UNITS/3 ML VIAL SQ SCH ×4 (07:26→20:04)
--- NOTE | 2019-06-17 07:46 | Orthopedics Progress Note ---
Date of Encounter: 06/17/19 Time of Encounter: 07:45 Subjective Interval history: Patient was seen this morning doing well without complaints. Afebrile vital signs stable. Operative extremity: Neurovascularly intact Dressing clean dry and intact Calves nontender Assessment and plan: Continue with postoperative care Hematocrit 32. Objective Vital signs: Vital Signs Temp Pulse Resp BP Pulse Ox 06/17/19 07:08 97.6 F 61 17 105/68 95 06/16/19 23:31 98.0 F 70 17 118/75 95 06/16/19 18:47 98.5 F 82 16 98/63 99 06/16/19 16:45 98.4 F 70 16 135/56 96 06/16/19 09:51 97.8 F 84 16 129/86 96 Intake and Output 06/16/19 06/16/19 06/17/19 15:59 23:59 07:59 Intake Total 340 / 930 250 / 930 Output Total 350 / 752 Balance - 250 / 178 Intake: IV Fluids 100 / 200 Ancef 2,000 MG In 0.9 % Sodium 100 / 200 Chloride 100 ML @ 200 mls/hr IVPB Q8HR [facility] Rx#:[id number] Oral 240 / 730 250 / 730 Output: Urine 350 / 752 Other: Meal Lunch Percent of Meal Consumed 25% # Voids 1 1 1 Weight 99.5 kg Blood Glucose* 147 105 109 Patient Weight 06/17/19 23:59 Weight 99.5 kg - Labs CBC & BMP: 06/17/19 05:48 06/17/19 05:48 Labs: Abnormal lab results RBC 3.63 M/mcL (3.82-4.97) L 06/17/19 05:48 Hgb 10.1 g/dL (11.5-15.4) L 06/17/19 05:48 Hct 32.7 % (35.3-44.9) L 06/17/19 05:48 MCH 27.8 pg (28.0-33.3) L 06/17/19 05:48 MCHC 30.9 g/dL (31.6-35.5) L 06/17/19 05:48 Sodium 134 mEq/L (136-145) L 06/16/19 06:19 BUN 29 mg/dL (8-23) H 06/17/19 05:48 Creatinine 1.24 mg/dL (0.60-1.20) H 06/17/19 05:48 Est GFR ( Amer) 53 (> 60) L 06/17/19 05:48 Est GFR (Non-Af Amer) 44 (> 60) L 06/17/19 05:48 Glucose 125 mg/dL (70-105) H 06/17/19 05:48 POC Glucose 176 mg/dL (70-99) H 06/16/19 00:32 Consult Discharge Plan - Plan Referrals: Franchesca Noe, OPERATIONS RESEARCH ANALYST [Primary Care Provider] -
[2019-06-17] MEDS: amLODIPine 5 MG TABLET PO SCH (08:51)
[2019-06-17] MEDS: *HR* Metformin 500 MG TABLET PO SCH ×2 (08:51→17:14)
[2019-06-17] MEDS: Ascorbic Acid 500 MG TABLET PO SCH ×2 (08:51→17:13)
[2019-06-17] MEDS: Gabapentin 300 MG CAPSULE PO SCH ×3 (08:52→20:05)
[2019-06-17] MEDS: Loratadine 10 MG TABLET PO SCH (08:52)
[2019-06-17] MEDS: Multivit/Ca/Min/Fe/FA 1 TAB TABLET PO SCH (08:52)
[2019-06-17] MEDS: HYDROcodone BIT/Homatropine 5 MG TABLET PO PRN (11:25)
[2019-06-17] MEDS: Ondansetron 4 MG/2 ML VIAL IVP PRN (15:49)
[2019-06-17] MEDS ORDERED: traMADol 50 MG TABLET PO PRN (17:29)
[2019-06-18 02:18] LABS: Basophils % 0.3 %; Eosinophils # 0.1 K/mcL (0.0-0.6); Eosinophils % 0.9 %; Hematocrit 32.9 % (35.3-44.9); Hemoglobin 9.9 g/dL (11.5-15.4); Immature Granulocytes % 0.3 % (0-4); Lymphocytes % 30.3 %; Mean Corpuscular HGB Conc 30.1 g/dL (31.6-35.5); Mean Corpuscular Volume 92.9 fL (83.0-100.0); Mean Platelet Volume 10.7 fL (9.4-12.4); Neutrophils # 5.8 K/mcL (1.6-8.9); Platelet Count 208 K/mcL (140-400); Red Blood Count 3.54 M/mcL (3.82-4.97); Red Cell Distribution Width 14.5 % (11.5-14.5); Segmented Neutrophils % 58.2 %; White Blood Count 9.9 K/mcL (4.3-11.1)
[2019-06-18 02:38] LABS: Calcium 8.8 mg/dL (8.6-10.3); Potassium 4.3 mEq/L (3.5-5.1)
[2019-06-18] MEDS: Levothyroxine 25 MCG TABLET PO SCH (05:53)
[2019-06-18] MEDS: *HR* Enoxaparin 30 MG/0.3 ML SYRINGE SQ SCH ×2 (05:53→18:09)
--- NOTE | 2019-06-18 06:35 | Orthopedics Progress Note ---
Date of Encounter: 06/18/19 Time of Encounter: 06:35 Subjective Interval history: Patient was seen this morning doing well without complaints. Afebrile vital signs stable. Operative extremity: Neurovascularly intact Dressing clean dry and intact Calves nontender Assessment and plan: Continue with postoperative care Discharge when approved Objective Vital signs: Vital Signs Temp Pulse Resp BP Pulse Ox 06/18/19 05:28 98.7 F 72 16 117/72 95 06/17/19 22:12 98.5 F 72 16 101/61 96 06/17/19 20:00 98.6 F 75 16 119/75 97 06/17/19 17:12 76 95/61 06/17/19 15:39 97.4 F L 69 15 97/61 95 06/17/19 11:05 98.1 F 71 18 111/70 95 06/17/19 08:49 76 105/68 06/17/19 07:08 97.6 F 61 17 105/68 95 Intake and Output 06/17/19 06/17/19 06/18/19 15:59 23:59 07:59 Intake Total 240 / 240 Output Total 350 / 350 Balance -110 / -110 Intake: Oral 240 / 240 Output: Catheter 350 / 350 Other: Meal Lunch Percent of Meal Consumed 100% # Voids 1 1 # Bowel Movements 1 1 Weight 109.8 kg Blood Glucose* 141 103 Patient Weight 06/18/19 23:59 Weight 109.8 kg - Labs CBC & BMP: 06/18/19 01:56 06/18/19 01:56 Labs: Abnormal lab results RBC 3.54 M/mcL (3.82-4.97) L 06/18/19 01:56 Hgb 9.9 g/dL (11.5-15.4) L 06/18/19 01:56 Hct 32.9 % (35.3-44.9) L 06/18/19 01:56 MCH 27.8 pg (28.0-33.3) L 06/17/19 05:48 MCHC 30.1 g/dL (31.6-35.5) L 06/18/19 01:56 Sodium 134 mEq/L (136-145) L 06/16/19 06:19 BUN 31 mg/dL (8-23) H 06/18/19 01:56 Creatinine 1.25 mg/dL (0.60-1.20) H 06/18/19 01:56 Est GFR ( Amer) 52 (> 60) L 06/18/19 01:56 Est GFR (Non-Af Amer) 43 (> 60) L 06/18/19 01:56 Glucose 111 mg/dL (70-105) H 06/18/19 01:56 POC Glucose 103 mg/dL (70-99) H 06/17/19 20:03 Consult Discharge Plan - Plan Referrals: Franchesca Noe, SENIOR PHP SOFTWARE DEVELOPER [Primary Care Provider] -
[2019-06-18] MEDS: Ringers Solution, Lactated 1,000 ML IVC SCH (07:00)
[2019-06-18] MEDS: Gabapentin 300 MG CAPSULE PO SCH (08:03)
[2019-06-18] MEDS: Multivit/Ca/Min/Fe/FA 1 TAB TABLET PO SCH (08:04)
[2019-06-18] MEDS: Ascorbic Acid 500 MG TABLET PO SCH ×2 (08:04→18:09)
[2019-06-18] MEDS: *HR* Metformin 500 MG TABLET PO SCH ×2 (08:04→18:09)
[2019-06-18] MEDS: Loratadine 10 MG TABLET PO SCH (08:04)
[2019-06-18] MEDS: Insulin LISPRO 300 UNITS/3 ML VIAL SQ SCH ×4 (08:04→22:30)
[2019-06-18] MEDS: amLODIPine 5 MG TABLET PO SCH (08:05)
[2019-06-18] MEDS: Ondansetron 4 MG/2 ML VIAL IVP PRN (09:32)
[2019-06-18] MEDS: *HR* HYDROcodone/Acet 10/325 mg TABLET PO PRN (09:32)
[2019-06-18] MEDS: *HR* Promethazine 25 MG/ML VIAL IVP PRN (13:50)
--- NOTE | 2019-06-18 13:59 | Event Note ---
Date of Encounter: 06/18/19 Time of Encounter: 13:58 POD#3 s/p Right robotic-assisted Total knee replacement [arthritis] 06/15/19 Patient seen at bedside. She c/o significant nausea unrelieved by Zofran and Phenergan. A&Ox3 Dressing and incision c/d/i No calf tenderness, erythema, or warmth. Neurovascularly intact b/l LE. Labwork, vitals, and medications reviewed. Pain control: Adequate Participating in therapy. All questions and concerns addressed. Educated on use of incentive spirometer, ambulation, and hydration. Patient educated on post-operative restrictions and care. Addressed: Patient noted to have decreased renal function on labwork - will d/c nephrotoxic meds and initiate gentle IV hydration with close monitoring for fluid overload. Suspect this is likely secondary to dehydration from patient's decreased thirst drive from her nausea - admits to dry mouth. Patient course and disposition discussed with Dr. Raymond D/C plan: ECF for rehab - awaiting acceptance
[2019-06-18] MEDS ORDERED: 0.9 % Sodium Chloride 1,000 ML IVC SCH (14:00)
[2019-06-19] MEDS: HYDROcodone BIT/Homatropine 5 MG TABLET PO PRN (02:22)
[2019-06-19] MEDS: Ondansetron 4 MG/2 ML VIAL IVP PRN (04:25)
[2019-06-19] MEDS: *HR* Enoxaparin 30 MG/0.3 ML SYRINGE SQ SCH (05:44)
[2019-06-19] MEDS: Levothyroxine 25 MCG TABLET PO SCH (05:44)
[2019-06-19] MEDS: *HR* Promethazine 25 MG/ML VIAL IVP PRN (05:59)
--- NOTE | 2019-06-19 06:34 | Orthopedics Progress Note ---
Date of Encounter: 06/19/19 Time of Encounter: 06:33 Subjective Interval history: Patient was seen this morning with complaints of nausea overnight. Patient states knee feels good. Afebrile vital signs stable. Operative extremity: Neurovascularly intact Dressing clean dry and intact Calves nontender Assessment and plan: Continue with postoperative care Patient with elevated creatinine will continue to monitor, if normalized we will plan for discharge today. Objective Vital signs: Vital Signs Temp Pulse Resp BP Pulse Ox 06/19/19 04:17 98.4 F 78 20 116/75 94 06/18/19 23:10 98.3 F 78 20 128/79 97 06/18/19 18:53 98.4 F 77 20 123/80 97 06/18/19 15:51 98.5 F 75 16 107/67 96 06/18/19 12:53 98.3 F 84 18 106/63 98 06/18/19 07:55 98.5 F 74 16 103/67 95 Intake and Output 06/18/19 06/18/19 06/19/19 15:59 23:59 07:59 Intake Total 400 / 600 200 / 600 200 / 200 Balance 400 / 600 200 / 600 200 / 200 Intake: Oral 400 / 600 200 / 600 200 / 200 Other: # Voids 1 1 Weight 109.7 kg Blood Glucose* 111 126 Patient Weight 06/19/19 23:59 Weight 109.7 kg - Labs CBC & BMP: 06/18/19 01:56 06/18/19 01:56 Labs: Abnormal lab results RBC 3.54 M/mcL (3.82-4.97) L 06/18/19 01:56 Hgb 9.9 g/dL (11.5-15.4) L 06/18/19 01:56 Hct 32.9 % (35.3-44.9) L 06/18/19 01:56 MCH 27.8 pg (28.0-33.3) L 06/17/19 05:48 MCHC 30.1 g/dL (31.6-35.5) L 06/18/19 01:56 Sodium 134 mEq/L (136-145) L 06/16/19 06:19 BUN 31 mg/dL (8-23) H 06/18/19 01:56 Creatinine 1.25 mg/dL (0.60-1.20) H 06/18/19 01:56 Est GFR ( Amer) 52 (> 60) L 06/18/19 01:56 Est GFR (Non-Af Amer) 43 (> 60) L 06/18/19 01:56 Glucose 111 mg/dL (70-105) H 06/18/19 01:56 POC Glucose 105 mg/dL (70-99) H 06/18/19 16:25 Consult Discharge Plan - Plan Referrals: Franchesca Noe, RETAIL TIRE SALES MANAGER [Primary Care Provider] -
[2019-06-19 08:23] LABS: BUN/Creatinine Ratio 30 (6-26); Blood Urea Nitrogen 27 mg/dL (8-23); Calcium 8.9 mg/dL (8.6-10.3); Carbon Dioxide 27 mEq/L (23-29); Chloride 105 mEq/L (98-107); Glucose 136 mg/dL (70-105); Osmolality,Calculated 291 (280-300); Potassium 4.3 mEq/L (3.5-5.1); Sodium 137 mEq/L (136-145); eGFR For African Americans > 60 (> 60); eGFR For Non-African Americans > 60 (> 60)
[2019-06-19] MEDS: Insulin LISPRO 300 UNITS/3 ML VIAL SQ SCH ×2 (08:26→13:07)
[2019-06-19] MEDS: amLODIPine 5 MG TABLET PO SCH (08:32)
[2019-06-19] MEDS: *HR* Metformin 500 MG TABLET PO SCH (08:32)
[2019-06-19] MEDS: Loratadine 10 MG TABLET PO SCH (08:33)
[2019-06-19] MEDS: Multivit/Ca/Min/Fe/FA 1 TAB TABLET PO SCH (08:33)
[2019-06-19] MEDS: Ascorbic Acid 500 MG TABLET PO SCH (08:33)
[2019-06-19 09:55] LABS: Basophils % 0.3 %; Eosinophils % 0.3 %; Hematocrit 31.6 % (35.3-44.9); Hemoglobin 9.8 g/dL (11.5-15.4); Immature Granulocytes % 0.6 % (0-4); Lymphocytes # 1.8 K/mcL (0.6-4.6); Lymphocytes % 19.6 %; Mean Corpuscular Hemoglobin 28.2 pg (28.0-33.3); Mean Corpuscular Volume 90.8 fL (83.0-100.0); Mean Platelet Volume 10.7 fL (9.4-12.4); Monocytes # 0.4 K/mcL (0.0-1.3); Monocytes % 4.8 %; Neutrophils # 6.6 K/mcL (1.6-8.9); Platelet Count 219 K/mcL (140-400); Red Blood Count 3.48 M/mcL (3.82-4.97); Red Cell Distribution Width 14.6 % (11.5-14.5); Segmented Neutrophils % 74.4 %; White Blood Count 8.9 K/mcL (4.3-11.1)
--- NOTE | 2019-06-19 10:32 | Event Note ---
Date of Encounter: 06/19/19 Time of Encounter: 10:45 POD#4 s/p Right robotic-assisted Total knee replacement [arthritis] 06/15/19 Patient seen at bedside. She c/o significant nausea unrelieved by Zofran and Phenergan. She states he head becomes foggy and she starts to feel nauseated. Denies dry mouth today. A&Ox3 Dressing and incision c/d/i No calf tenderness, erythema, or warmth. Neurovascularly intact b/l LE. Labwork, vitals, and medications reviewed. Pain control: Adequate - patient believes the medication may be causing her nausea Participating in therapy. All questions and concerns addressed. Educated on use of incentive spirometer, ambulation, and hydration. Patient educated on post-operative restrictions and care. Addressed: Patient noted to have decreased renal function on labwork - Nephrotoxic meds discontinued 06/18 gentle IV hydration was initiated with close monitoring for fluid overload. Suspect this was likely secondary to dehydration from patient's decreased thirst drive from her nausea. Renal function 06/19 noted to be wnl at patient's baseline. Patient course and disposition discussed with Dr. Raymond D/C plan: ECF for rehab - awaiting acceptance
[2019-06-19 14:56] VITALS: BP 124/70
--- NOTE | 2019-06-19 17:01 | Physician Discharge Referral ---
Home Health/Hosp Referral Info Transfer to: Home Health Attending Provider: Dr. Dhruv Raymond - Diagnosis (1) Status post total right knee replacement Priority: Primary Status: Acute (2) Arthritis of right knee Priority: Primary Status: Chronic (3) Thyroid disorder Priority: Secondary Status: Chronic (4) Diabetes Priority: Secondary Status: Chronic (5) HTN (hypertension) Priority: Secondary Status: Chronic (6) RAVINDRA on CPAP Priority: Secondary Status: Chronic (7) Obesity Priority: Secondary Status: Chronic - Respiratory Orders Smoking Cessation: Smoking cessation has been advised. For more information, call the [place] Tobacco Quit Line at 9-059-FOUZ-NOW. - Dressing/Wound Care Site: right knee - Diet/Nutrition Diet/Nutrition Orders: Regular - Activity Activity Orders: Up ad claudette, Ambulate, Chair, Walker - Services Needed Following services are medically necessary services: Nursing, Home Health Aide, Physical Therapy, Occupational Therapy, Med Social Work Home Care Orders: Total Knee replacement Precautions x 6 weeks Apply cold therapy wrap 3-6x/day for 20 minutes at a time. Encourage ambulation throughout the day and incentive spirometer 10x/hour. Elevate affected extremity above heart as tolerated. Brace: Wear knee immobilizer at night x 2 weeks. Opsite placed. Keep dressing intact until first follow up appointment. If greater than 50% saturated, notify office, remove dressing and place appropriate dressing back in place. Leave Zipline intact. Opsite dressing is water resistant, not water-proof. OK to shower, but do not get dressing wet. - Transfer Medications Prescriptions: Aspirin Enteric Coated [Aspirin EC] 325 mg PO DAILY 10 Days #10 tablet. Home Medications: Atorvastatin [Lipitor] 40 mg PO HS 12/18/16 [History] Carvedilol 12.5 mg PO BID 12/18/16 [History] Omeprazole 20 mg PO QPM 12/18/16 [History] Levothyroxine [Synthroid] 25 mcg PO QAM 07/01/18 [History] Albuterol Sulfate 2.5 mg IH TID PRN 08/03/18 [History] Loratadine [Allergy Relief] 10 mg PO QAM 08/03/18 [History] Metformin HCl 1,000 mg PO BID 08/03/18 [History] Acetaminophen [Pain Relief] 500 mg PO Q6H 7 Days #28 tablet 06/15/19 [Rx] Amlodipine Besylate 10 mg PO QAM 06/15/19 [History] Docusate [Colace] 100 mg PO BID 5 Days #10 capsule 06/15/19 [Rx] Gabapentin [Neurontin] 300 mg PO BID 06/15/19 [History] Losartan Potassium [Cozaar] 100 mg PO QAM 06/15/19 [History] Multivitamin with Iron [Multivitamins with Iron] 1 tab PO DAILY 06/15/19 [History] Tramadol HCl [Ultram] 50 mg PO QID PRN 5 Days #20 tab 06/15/19 [Rx] Aspirin Enteric Coated [Aspirin EC] 325 mg PO DAILY 10 Days #10 tablet. 06/19/19 [Rx] Allergies/Adverse Reactions: Allergy/AdvReac Type Severity Reaction Status Date / Time oxycodone [From Percocet] Allergy Nausea, Verified 06/15/19 15:33 Vomiting hydrochlorothiazide AdvReac Shakiness, Verified 06/15/19 13:40 Shortness of Breath meperidine [From Demerol] AdvReac Nausea Verified 06/15/19 13:40 Certification: Further, I certify that my clinical findings support that this patient is homebound (i.e. absences from home require considerable and taxing effort and are for medical reasons or anglican services or infrequently or short duration when for other reasons) because: Homebound Reason: Post-surgery restriction and or conditions limit ability to leave home Attestation: My signature below is to certify that this patient is under my care and that I, or nurse practitioner, or a physician civil engineering assistant working with me, has a [id number] encounter with this patient.
== END 2019-06-19 17:26 | disposition home health service (06) ==
LOC: SAMDAY 13:07 → 3NENU 20:36 → INTOOBSV 06-16 06:56
PROVIDERS: ADMIT Orthopaedic Surgery; ATTEND Orthopaedic Surgery

== ENCOUNTER 2019-10-01 06:10 | Inpatient (IN) ==
[2019-10-01] MEDS ORDERED: Lidocaine -MPF 2% 5 ML VIAL ONE (06:37)
[2019-10-01] MEDS ORDERED: Albuterol 2.5 MG/3 ML NEBULIZER IH PRN ×2 (06:45→10:57)
[2019-10-01] MEDS ORDERED: CeFAZolin Syr 2,000MG/20 ML 2,000 MG/20 ML SYRINGE IVPB ONE (06:45)
[2019-10-01] MEDS ORDERED: Pregabalin 75 MG CAPSULE PO ONE (07:14)
[2019-10-01] MEDS ORDERED: Acetaminophen IV 1,000 MG/100 ML INFUS..BTL IVPB ONE (07:14)
[2019-10-01] MEDS ORDERED: Famotidine 20 MG/2 ML VIAL IVP ONE (07:14)
[2019-10-01] MEDS ORDERED: Ethanol\\Acetic Acid\\Na Ace\\Ben 1,000 ML IRRIG.SOLN IR ONE (07:19)
[2019-10-01] MEDS ORDERED: Lidocaine -MPF 2% 2 ML VIAL ONE (07:20)
[2019-10-01] MEDS ORDERED: *HR* Propofol 200 MG/20 ML VIAL IVP ONE (07:20)
[2019-10-01] MEDS ORDERED: Propofol 500 MG/50 ML INFUS..BTL ONE ×2 (07:20→08:43)
[2019-10-01] MEDS ORDERED: Tranexamic Acid 1,000 MG/10 ML VIAL ONE (07:21)
[2019-10-01] MEDS ORDERED: Scopolamine Patch 1.5 MG PATCH.TD72 TD ONE (07:22)
[2019-10-01] MEDS ORDERED: *HR* Midazolam HCl 2 MG/2 ML VIAL ONE (07:24)
[2019-10-01] MEDS ORDERED: *HR* FentaNYL (PF) 100 MCG/2 ML VIAL ONE (07:24)
[2019-10-01] MEDS: Ringers Solution, Lactated 1,000 ML IVC SCH ×2 (07:37→09:56)
[2019-10-01] MEDS ORDERED: *HR* PHENYLEPHRINE 1,000 MCG/10 ML SYRINGE IVP ONE (08:26)
[2019-10-01 09:57] LABS: Hematocrit 31.4 % (35.3-44.9); Hemoglobin 9.6 g/dL (11.5-15.4)
[2019-10-01] MEDS ORDERED: D5% in Water 1,000 ML IVC PRN (10:57)
[2019-10-01] MEDS ORDERED: NON-FORMULARY MEDICATION 1 EACH EACH (Meloxicam [Mobic] 15 MG) PO SCH (10:57)
[2019-10-01] MEDS ORDERED: Naloxone 0.4 MG/ML INJ IVP PRN (10:57)
[2019-10-01] MEDS ORDERED: Dextrose Gel 15 GM/37.5 ML TUBE PO PRN ×2 (10:57)
[2019-10-01] MEDS ORDERED: *HR* Dextrose 50 % in Water (Syg) 50 ML SYRINGE IVP PRN (10:57)
[2019-10-01] MEDS ORDERED: Ringers Solution, Lactated 1,000 ML IVC SCH (10:57)
[2019-10-01] MEDS ORDERED: Sennosides 8.6 MG TABLET PO PRN (10:57)
[2019-10-01] MEDS ORDERED: Temazepam 15 MG CAPSULE PO PRN (10:57)
[2019-10-01] MEDS ORDERED: HYDROcodone BIT/Homatropine 5 MG TABLET PO PRN (10:57)
[2019-10-01] MEDS ORDERED: *HR* HYDROcodone/Acet 10/325 mg TABLET PO PRN (10:57)
[2019-10-01] MEDS ORDERED: MOM Conc 10 ML UD.LIQ PO PRN (10:57)
[2019-10-01] MEDS ORDERED: *HR* Promethazine 25 MG/ML VIAL IVP PRN (10:57)
[2019-10-01] MEDS ORDERED: Ondansetron 4 MG/2 ML VIAL ONE (11:19)
[2019-10-01] MEDS: Ondansetron 4 MG/2 ML VIAL IVP PRN (11:30)
[2019-10-01] MEDS: carvediloL 6.25 MG TABLET PO SCH ×2 (11:48→16:32)
[2019-10-01] MEDS: amLODIPine 5 MG TABLET PO SCH (11:50)
[2019-10-01] MEDS: Loratadine 10 MG TABLET PO SCH (11:54)
[2019-10-01] MEDS: Gabapentin 300 MG CAPSULE PO SCH ×3 (11:54→20:39)
[2019-10-01] MEDS: Ascorbic Acid 500 MG TABLET PO SCH ×2 (11:55→16:32)
[2019-10-01] MEDS: Estrogens, Conjugated CREAM 30 GM TUBE VG SCH (11:55)
[2019-10-01] MEDS: Multivit/Ca/Min/Fe/FA 1 TAB TABLET PO SCH (11:55)
[2019-10-01] MEDS: Levothyroxine 25 MCG TABLET PO SCH (11:55)
[2019-10-01] MEDS: *HR* Metformin 500 MG TABLET PO SCH ×2 (11:57→20:39)
[2019-10-01] MEDS: (Diclofenac Sodium [Voltaren] 1 APPL) TP SCH ×3 (12:11→20:42)
[2019-10-01] MEDS: Triamcinolone Acet 0.1% CRM 15 GM TUBE TP SCH (12:11)
[2019-10-01] MEDS: Insulin LISPRO 300 UNITS/3 ML VIAL SQ SCH ×3 (12:13→20:32)
[2019-10-01] MEDS: Budesonide/Formoterol 160/4.5 1 PUFF INH IH SCH (13:03)
[2019-10-01] MEDS: Clobetasol Propionate 0.05% 15 GM Cream Tube TP SCH (16:57)
[2019-10-02] MEDS: Ondansetron 4 MG/2 ML VIAL IVP PRN (01:49)
[2019-10-02 04:55] LABS: Basophils % 0.4 %; Eosinophils # 0.1 K/mcL (0.0-0.6); Eosinophils % 0.5 %; Hematocrit 31.7 % (35.3-44.9); Hemoglobin 10.2 g/dL (11.5-15.4); Immature Granulocytes % 0.6 % (0-4); Lymphocytes # 1.3 K/mcL (0.6-4.6); Lymphocytes % 12.4 %; Mean Corpuscular HGB Conc 32.2 g/dL (31.6-35.5); Mean Corpuscular Volume 83.9 fL (83.0-100.0); Mean Platelet Volume 10.5 fL (9.4-12.4); Monocytes # 0.6 K/mcL (0.0-1.3); Monocytes % 6.1 %; Neutrophils # 8.3 K/mcL (1.6-8.9); Platelet Count 220 K/mcL (140-400); Red Blood Count 3.78 M/mcL (3.82-4.97); Red Cell Distribution Width 13.8 % (11.5-14.5); White Blood Count 10.4 K/mcL (4.3-11.1)
[2019-10-02 05:08] LABS: BUN/Creatinine Ratio 25 (6-26); Blood Urea Nitrogen 22 mg/dL (8-23); Calcium 8.8 mg/dL (8.6-10.3); Carbon Dioxide 24 mEq/L (23-29); Chloride 98 mEq/L (98-107); Glucose 126 mg/dL (70-105); Osmolality,Calculated 277 (280-300); Potassium 4.4 mEq/L (3.5-5.1); Sodium 131 mEq/L (136-145); eGFR For African Americans > 60 (> 60); eGFR For Non-African Americans > 60 (> 60)
[2019-10-02] MEDS: *HR* Enoxaparin 30 MG/0.3 ML SYRINGE SQ SCH ×2 (05:33→17:13)
[2019-10-02] MEDS: Levothyroxine 25 MCG TABLET PO SCH (05:33)
[2019-10-02] MEDS ORDERED: *HR* Enoxaparin 30 MG/0.3 ML SYRINGE SQ SCH (06:33)
[2019-10-02] MEDS: Budesonide/Formoterol 160/4.5 1 PUFF INH IH SCH (07:49)
[2019-10-02] MEDS: Insulin LISPRO 300 UNITS/3 ML VIAL SQ SCH ×4 (08:41→20:44)
[2019-10-02] MEDS: carvediloL 6.25 MG TABLET PO SCH ×2 (08:42→17:12)
[2019-10-02] MEDS: Multivit/Ca/Min/Fe/FA 1 TAB TABLET PO SCH (08:42)
[2019-10-02] MEDS: Gabapentin 300 MG CAPSULE PO SCH ×3 (08:42→20:00)
[2019-10-02] MEDS: Ascorbic Acid 500 MG TABLET PO SCH ×2 (08:42→17:12)
[2019-10-02] MEDS: *HR* Metformin 500 MG TABLET PO SCH ×2 (08:42→20:00)
[2019-10-02] MEDS: Loratadine 10 MG TABLET PO SCH (08:43)
[2019-10-02] MEDS: amLODIPine 5 MG TABLET PO SCH (08:43)
[2019-10-02] MEDS: (Diclofenac Sodium [Voltaren] 1 APPL) TP SCH (08:51)
[2019-10-02] MEDS: Triamcinolone Acet 0.1% CRM 15 GM TUBE TP SCH (08:51)
[2019-10-02] MEDS: Clobetasol Propionate 0.05% 15 GM Cream Tube TP SCH (08:51)
[2019-10-02] MEDS: Estrogens, Conjugated CREAM 30 GM TUBE VG SCH (08:51)
[2019-10-03] MEDS: *HR* Enoxaparin 30 MG/0.3 ML SYRINGE SQ SCH (05:28)
[2019-10-03] MEDS: Levothyroxine 25 MCG TABLET PO SCH (05:28)
[2019-10-03 06:44] LABS: Basophils % 0.2 %; Eosinophils # 0.2 K/mcL (0.0-0.6); Eosinophils % 1.9 %; Hematocrit 31.6 % (35.3-44.9); Hemoglobin 9.7 g/dL (11.5-15.4); Immature Granulocytes % 0.5 % (0-4); Lymphocytes # 1.8 K/mcL (0.6-4.6); Lymphocytes % 20.8 %; Mean Corpuscular HGB Conc 30.7 g/dL (31.6-35.5); Mean Platelet Volume 10.6 fL (9.4-12.4); Monocytes # 0.9 K/mcL (0.0-1.3); Monocytes % 10.3 %; Neutrophils # 5.6 K/mcL (1.6-8.9); Platelet Count 195 K/mcL (140-400); Red Blood Count 3.59 M/mcL (3.82-4.97); Red Cell Distribution Width 14.1 % (11.5-14.5); Segmented Neutrophils % 66.3 %; White Blood Count 8.5 K/mcL (4.3-11.1)
[2019-10-03 07:05] LABS: BUN/Creatinine Ratio 26 (6-26); Blood Urea Nitrogen 25 mg/dL (8-23); Calcium 8.6 mg/dL (8.6-10.3); Carbon Dioxide 27 mEq/L (23-29); Chloride 100 mEq/L (98-107); Glucose 114 mg/dL (70-105); Osmolality,Calculated 285 (280-300); Potassium 4.2 mEq/L (3.5-5.1); Sodium 135 mEq/L (136-145); eGFR For African Americans > 60 (> 60); eGFR For Non-African Americans 58 (> 60)
[2019-10-03 07:31] VITALS: BP 105/58
[2019-10-03] MEDS: Budesonide/Formoterol 160/4.5 1 PUFF INH IH SCH (07:58)
[2019-10-03] MEDS: Loratadine 10 MG TABLET PO SCH (08:58)
[2019-10-03] MEDS: Gabapentin 300 MG CAPSULE PO SCH (08:58)
[2019-10-03] MEDS: *HR* Metformin 500 MG TABLET PO SCH (08:59)
[2019-10-03] MEDS: carvediloL 6.25 MG TABLET PO SCH (08:59)
[2019-10-03] MEDS: Ascorbic Acid 500 MG TABLET PO SCH (08:59)
[2019-10-03] MEDS: Multivit/Ca/Min/Fe/FA 1 TAB TABLET PO SCH (08:59)
[2019-10-03] MEDS: Triamcinolone Acet 0.1% CRM 15 GM TUBE TP SCH (09:00)
[2019-10-03] MEDS: Estrogens, Conjugated CREAM 30 GM TUBE VG SCH (09:00)
[2019-10-03] MEDS: amLODIPine 5 MG TABLET PO SCH (09:00)
[2019-10-03] MEDS: Clobetasol Propionate 0.05% 15 GM Cream Tube TP SCH (09:00)
[2019-10-03] MEDS: Insulin LISPRO 300 UNITS/3 ML VIAL SQ SCH (10:00)
== END 2019-10-03 11:39 | disposition home or self-care (01) | DRG 470 ==
LOC: SAMDAY 06:10 → 3NENU 11:02
PROVIDERS: ADMIT Orthopaedic Surgery; ATTEND Orthopaedic Surgery

== ENCOUNTER 2020-05-30 10:13 | Observation (INO) ==
[2020-05-30] MEDS ORDERED: *HR* Midazolam HCl 2 MG/2 ML VIAL ONE (10:39)
[2020-05-30] MEDS ORDERED: Dexamethasone 4 MG/ML VIAL ONE (10:39)
[2020-05-30] MEDS ORDERED: *HR* Propofol 200 MG/20 ML VIAL IVP ONE (10:48)
[2020-05-30] MEDS ORDERED: *HR* FentaNYL (PF) 100 MCG/2 ML VIAL ONE (10:48)
[2020-05-30] MEDS ORDERED: Lidocaine -MPF 2% 2 ML VIAL ONE (10:48)
[2020-05-30] MEDS ORDERED: CeFAZolin Syr 2,000MG/20 ML 2,000 MG/20 ML SYRINGE IVPB ONE (11:03)
[2020-05-30] MEDS ORDERED: Ringers Solution, Lactated 1,000 ML IVC SCH ×2 (11:15→11:30)
[2020-05-30] MEDS ORDERED: *HR* Promethazine 25 MG/ML VIAL IVP PRN (11:32)
[2020-05-30] MEDS ORDERED: Ondansetron 4 MG/2 ML VIAL IVP ONE (11:32)
[2020-05-30] MEDS ORDERED: *HR* HYDROmorphone PF 0.5 MG/0.5 ML SYRINGE IVP PRN (11:32)
[2020-05-30] MEDS ORDERED: Celecoxib 200 MG CAPSULE PO ONE (11:34)
[2020-05-30] MEDS ORDERED: Acetaminophen IV 1,000 MG/100 ML INFUS..BTL IVPB ONE (11:36)
[2020-05-30] MEDS ORDERED: Vancomycin 1,000 MG VIAL ONE (11:50)
[2020-05-30] MEDS ORDERED: Ethanol\\Acetic Acid\\Na Ace\\Ben 1,000 ML IRRIG.SOLN IR ONE (11:50)
[2020-05-30] MEDS ORDERED: ROPIVACAINE/PF/NS 0.25% 1 EACH SYRINGE INTRAART ONE (11:53)
[2020-05-30] MEDS ORDERED: Total Joint Mixture (50 ml) INTRAART ONE (12:45)
[2020-05-30] MEDS ORDERED: *HR* PHENYLEPHRINE 1,000 MCG/10 ML SYRINGE IVP ONE (13:13)
[2020-05-30] MEDS ORDERED: EPHEDrine 50 MG/ML VIAL ONE (13:26)
[2020-05-30] MEDS ORDERED: Albumin Human 5% 12.5 GM/250 ML IV.SOLN ONE (13:45)
[2020-05-30] MEDS ORDERED: Ondansetron 4 MG/2 ML VIAL ONE (14:00)
[2020-05-30 15:01] LABS: Hematocrit 33.5 % (35.3-44.9); Hemoglobin 9.9 g/dL (11.5-15.4)
[2020-05-30] MEDS ORDERED: Clobetasol Propionate 0.05% 15 GM Cream Tube TP PRN (15:12)
[2020-05-30] MEDS ORDERED: MOM Conc 10 ML UD.LIQ PO PRN (15:12)
[2020-05-30] MEDS ORDERED: Dextrose Gel 15 GM/37.5 ML TUBE PO PRN ×2 (15:12)
[2020-05-30] MEDS ORDERED: D5% in Water 1,000 ML IVC PRN (15:12)
[2020-05-30] MEDS ORDERED: Naloxone 0.4 MG/ML INJ IVP PRN (15:12)
[2020-05-30] MEDS ORDERED: Albuterol 2.5 MG/3 ML NEBULIZER IH PRN (15:12)
[2020-05-30] MEDS ORDERED: Sennosides 8.6 MG TABLET PO PRN (15:12)
[2020-05-30] MEDS ORDERED: *HR* Dextrose 50 % in Water (Vial) 50 ML VIAL IVP PRN (15:12)
[2020-05-30] MEDS: *HR* Promethazine 25 MG/ML VIAL IVP PRN (16:31)
[2020-05-30] MEDS: Insulin LISPRO 300 UNITS/3 ML VIAL SQ SCH ×2 (16:31→22:30)
[2020-05-30] MEDS: *HR* Metformin 500 MG TABLET PO SCH (16:32)
[2020-05-30] MEDS: carvediloL 6.25 MG TABLET PO SCH (16:32)
[2020-05-30] MEDS: Ascorbic Acid 500 MG TABLET PO SCH (16:32)
[2020-05-30] MEDS: Gabapentin 300 MG CAPSULE PO SCH ×2 (16:32→17:19)
[2020-05-30] MEDS: *HR* HYDROcodone/Acet 10/325 mg TABLET PO PRN (17:19)
[2020-05-30] MEDS: Budesonide/Formoterol 160/4.5 1 PUFF INH IH SCH (19:32)
[2020-05-30] MEDS: CeFAZolin 2 GM/120 ML BAG IVPB SCH (22:25)
[2020-05-31] MEDS: Gabapentin 300 MG CAPSULE PO SCH ×4 (00:09→20:25)
[2020-05-31] MEDS: CeFAZolin 2 GM/120 ML BAG IVPB SCH (05:06)
[2020-05-31] MEDS: Levothyroxine 25 MCG TABLET PO SCH (05:46)
[2020-05-31] MEDS: HYDROcodone BIT/Homatropine 5 MG TABLET PO PRN ×2 (07:04→12:38)
[2020-05-31] MEDS: Insulin LISPRO 300 UNITS/3 ML VIAL SQ SCH ×4 (07:38→20:22)
[2020-05-31] MEDS: Budesonide/Formoterol 160/4.5 1 PUFF INH IH SCH ×2 (08:22→20:42)
[2020-05-31] MEDS ORDERED: NON-FORMULARY MEDICATION 1 EACH EACH (Multivitamin [Multivitamins] 1 EACH) PO SCH (09:00)
[2020-05-31] MEDS: *HR* HYDROcodone/Acet 10/325 mg TABLET PO PRN ×2 (09:07→23:23)
[2020-05-31] MEDS: amLODIPine 5 MG TABLET PO SCH (09:07)
[2020-05-31] MEDS: Ascorbic Acid 500 MG TABLET PO SCH ×2 (09:08→16:44)
[2020-05-31] MEDS: Multivit/Ca/Min/Fe/FA 1 TAB TABLET PO SCH (09:08)
[2020-05-31] MEDS: *HR* Metformin 500 MG TABLET PO SCH ×2 (09:08→16:44)
[2020-05-31] MEDS: carvediloL 6.25 MG TABLET PO SCH ×2 (09:08→16:45)
[2020-05-31 11:13] LABS: Basophils % 0.3 %; Eosinophils # 0.1 K/mcL (0.0-0.6); Eosinophils % 1.9 %; Hematocrit 29.1 % (35.3-44.9); Hemoglobin 8.9 g/dL (11.5-15.4); Immature Granulocytes % 0.3 % (0-4); Lymphocytes # 0.6 K/mcL (0.6-4.6); Lymphocytes % 7.6 %; Mean Corpuscular HGB Conc 30.6 g/dL (31.6-35.5); Mean Corpuscular Hemoglobin 27.4 pg (28.0-33.3); Mean Corpuscular Volume 89.5 fL (83.0-100.0); Mean Platelet Volume 10.9 fL (9.4-12.4); Monocytes # 0.5 K/mcL (0.0-1.3); Monocytes % 7.3 %; Neutrophils # 6.1 K/mcL (1.6-8.9); Platelet Count 167 K/mcL (140-400); Red Blood Count 3.25 M/mcL (3.82-4.97); Red Cell Distribution Width 15.1 % (11.5-14.5); Segmented Neutrophils % 82.6 %; White Blood Count 7.4 K/mcL (4.3-11.1)
[2020-05-31 11:33] LABS: BUN/Creatinine Ratio 22 (6-26); Blood Urea Nitrogen 24 mg/dL (8-23); Calcium 8.5 mg/dL (8.6-10.3); Carbon Dioxide 26 mEq/L (23-29); Chloride 101 mEq/L (98-107); Glucose 162 mg/dL (70-105); Osmolality,Calculated 288 (280-300); Potassium 3.9 mEq/L (3.5-5.1); Sodium 135 mEq/L (136-145); eGFR For African Americans > 60 (> 60); eGFR For Non-African Americans 51 (> 60)
[2020-05-31] MEDS: Aspirin Enteric Coated 81 MG Tablet PO SCH (12:33)
[2020-05-31] MEDS: Ondansetron 4 MG/2 ML VIAL IVP PRN ×2 (14:00→23:23)
[2020-06-01] MEDS: HYDROcodone BIT/Homatropine 5 MG TABLET PO PRN (02:31)
[2020-06-01] MEDS: Levothyroxine 25 MCG TABLET PO SCH (06:08)
[2020-06-01] MEDS: Budesonide/Formoterol 160/4.5 1 PUFF INH IH SCH ×2 (08:19→19:32)
[2020-06-01] MEDS: *HR* Metformin 500 MG TABLET PO SCH ×2 (09:01→16:00)
[2020-06-01] MEDS: *HR* HYDROcodone/Acet 10/325 mg TABLET PO PRN (09:01)
[2020-06-01] MEDS: Multivit/Ca/Min/Fe/FA 1 TAB TABLET PO SCH (09:01)
[2020-06-01] MEDS: amLODIPine 5 MG TABLET PO SCH (09:01)
[2020-06-01] MEDS: Aspirin Enteric Coated 81 MG Tablet PO SCH (09:01)
[2020-06-01] MEDS: carvediloL 6.25 MG TABLET PO SCH ×2 (09:01→16:00)
[2020-06-01] MEDS: Ascorbic Acid 500 MG TABLET PO SCH ×2 (09:01→16:00)
[2020-06-01] MEDS: Ondansetron 4 MG/2 ML VIAL IVP PRN (09:02)
[2020-06-01] MEDS: Gabapentin 300 MG CAPSULE PO SCH ×3 (09:02→21:12)
[2020-06-01] MEDS: Insulin LISPRO 300 UNITS/3 ML VIAL SQ SCH ×4 (09:08→22:19)
[2020-06-01 11:23] LABS: Basophils % 0.1 %; Eosinophils # 0.1 K/mcL (0.0-0.6); Eosinophils % 1.8 %; Hematocrit 28.1 % (35.3-44.9); Hemoglobin 8.6 g/dL (11.5-15.4); Immature Granulocytes % 0.4 % (0-4); Lymphocytes # 0.8 K/mcL (0.6-4.6); Lymphocytes % 10.5 %; Mean Corpuscular HGB Conc 30.6 g/dL (31.6-35.5); Mean Corpuscular Hemoglobin 27.5 pg (28.0-33.3); Mean Corpuscular Volume 89.8 fL (83.0-100.0); Mean Platelet Volume 10.5 fL (9.4-12.4); Monocytes # 0.6 K/mcL (0.0-1.3); Monocytes % 8.3 %; Neutrophils # 6.1 K/mcL (1.6-8.9); Platelet Count 163 K/mcL (140-400); Red Blood Count 3.13 M/mcL (3.82-4.97); Red Cell Distribution Width 15.2 % (11.5-14.5); Segmented Neutrophils % 78.9 %; White Blood Count 7.7 K/mcL (4.3-11.1)
[2020-06-01 11:42] LABS: BUN/Creatinine Ratio 24 (6-26); Blood Urea Nitrogen 24 mg/dL (8-23); Calcium 8.3 mg/dL (8.6-10.3); Carbon Dioxide 27 mEq/L (23-29); Chloride 102 mEq/L (98-107); Glucose 147 mg/dL (70-105); Osmolality,Calculated 285 (280-300); Potassium 4.2 mEq/L (3.5-5.1); Sodium 134 mEq/L (136-145); eGFR For African Americans > 60 (> 60); eGFR For Non-African Americans 56 (> 60)
[2020-06-01] MEDS: *HR* Promethazine 25 MG/ML VIAL IVP PRN (16:00)
[2020-06-01] MEDS: Ringers Solution, Lactated 1,000 ML IVC SCH (22:26)
[2020-06-02] MEDS: Ringers Solution, Lactated 1,000 ML IVC SCH (00:09)
[2020-06-02] MEDS: HYDROcodone BIT/Homatropine 5 MG TABLET PO PRN (03:59)
[2020-06-02] MEDS: Ondansetron 4 MG/2 ML VIAL IVP PRN (04:01)
[2020-06-02] MEDS: Levothyroxine 25 MCG TABLET PO SCH (05:58)
[2020-06-02] MEDS: Aspirin Enteric Coated 81 MG Tablet PO SCH (07:46)
[2020-06-02] MEDS: carvediloL 6.25 MG TABLET PO SCH (07:47)
[2020-06-02] MEDS: amLODIPine 5 MG TABLET PO SCH (07:47)
[2020-06-02] MEDS: Gabapentin 300 MG CAPSULE PO SCH (07:47)
[2020-06-02] MEDS: Multivit/Ca/Min/Fe/FA 1 TAB TABLET PO SCH (07:48)
[2020-06-02] MEDS: Ascorbic Acid 500 MG TABLET PO SCH (07:48)
[2020-06-02] MEDS: *HR* Metformin 500 MG TABLET PO SCH (07:49)
[2020-06-02] MEDS: Insulin LISPRO 300 UNITS/3 ML VIAL SQ SCH (07:55)
[2020-06-02] MEDS: Budesonide/Formoterol 160/4.5 1 PUFF INH IH SCH (08:11)
[2020-06-02 11:24] VITALS: BP 119/72
== END 2020-06-02 12:54 | disposition home or self-care (01) ==
LOC: SAMDAY 10:13 → 3NENU 10:13
PROVIDERS: ADMIT Orthopaedic Surgery Hand Surgery; ATTEND Orthopaedic Surgery

== ENCOUNTER 2020-11-20 19:25 | Inpatient (IN) ==
[2020-11-20 21:43] LABS: Basophils % 0.4 %; Eosinophils # 0.1 K/mcL (0.0-0.6); Eosinophils % 1.3 %; Hematocrit 33.3 % (35.3-44.9); Hemoglobin 9.9 g/dL (11.5-15.4); Immature Granulocytes % 0.3 % (0-4); Lymphocytes # 1.5 K/mcL (0.6-4.6); Lymphocytes % 19.3 %; Mean Corpuscular HGB Conc 29.7 g/dL (31.6-35.5); Mean Corpuscular Hemoglobin 25.2 pg (28.0-33.3); Mean Corpuscular Volume 84.7 fL (83.0-100.0); Mean Platelet Volume 10.2 fL (9.4-12.4); Monocytes # 0.8 K/mcL (0.0-1.3); Monocytes % 9.5 %; Neutrophils # 5.4 K/mcL (1.6-8.9); Platelet Count 262 K/mcL (140-400); Red Blood Count 3.93 M/mcL (3.82-4.97); Red Cell Distribution Width 18.8 % (11.5-14.5); Segmented Neutrophils % 69.2 %; White Blood Count 7.9 K/mcL (4.3-11.1)
[2020-11-20 22:04] LABS: BUN/Creatinine Ratio 30 (6-26); Blood Urea Nitrogen 32 mg/dL (8-23); C-Reactive Protein < 5 mg/L (Less than 10); Calcium 9.2 mg/dL (8.6-10.3); Carbon Dioxide 25 mEq/L (23-29); Chloride 104 mEq/L (98-107); Glucose 107 mg/dL (70-105); Osmolality,Calculated 293 (280-300); Potassium 4.5 mEq/L (3.5-5.1); Sodium 138 mEq/L (136-145); Troponin I < 0.03 ng/mL (< 0.04); eGFR For African Americans > 60 (> 60); eGFR For Non-African Americans 51 (> 60)
[2020-11-21] MEDS ORDERED: *HR* FentaNYL (PF) 100 MCG/2 ML VIAL IVP ONE (01:34)
[2020-11-21] MEDS ORDERED: Acetaminophen 325 MG TABLET PO PRN (02:00)
[2020-11-21] MEDS ORDERED: Naloxone 0.4 MG/ML INJ IVP PRN (02:00)
[2020-11-21] MEDS ORDERED: Ondansetron 4 MG/2 ML VIAL IVP PRN (02:00)
[2020-11-21] MEDS ORDERED: *HR* HYDROmorphone (PF) 1 MG/ML SYRINGE IVP PRN (02:07)
[2020-11-21] MEDS ORDERED: *HR* HYDROmorphone 2 MG TABLET PO PRN (02:09)
[2020-11-21] MEDS ORDERED: Dextrose Gel 15 GM/37.5 ML TUBE PO PRN ×2 (03:21)
[2020-11-21] MEDS ORDERED: *HR* Dextrose 50 % in Water (Vial) 50 ML VIAL IVP PRN (03:21)
[2020-11-21] MEDS ORDERED: D5% in Water 1,000 ML IVC PRN (03:21)
[2020-11-21] MEDS ORDERED: Prochlorperazine 10 MG/2 ML VIAL IVP ONE (03:23)
[2020-11-21 04:30] LABS: Hematocrit 33.9 % (35.3-44.9); Mean Corpuscular HGB Conc 29.5 g/dL (31.6-35.5); Mean Corpuscular Volume 81.3 fL (83.0-100.0); Mean Platelet Volume 9.8 fL (9.4-12.4); Platelet Count 240 K/mcL (140-400); Red Blood Count 4.17 M/mcL (3.82-4.97); Red Cell Distribution Width 18.7 % (11.5-14.5); White Blood Count 7.8 K/mcL (4.3-11.1)
[2020-11-21 04:45] LABS: INR 1.1; Prothrombin Time 12.4 Seconds (9.4-12.1)
[2020-11-21 04:46] LABS: BUN/Creatinine Ratio 28 (6-26); Blood Urea Nitrogen 29 mg/dL (8-23); Calcium 9.6 mg/dL (8.6-10.3); Carbon Dioxide 26 mEq/L (23-29); Chloride 103 mEq/L (98-107); Glucose 165 mg/dL (70-105); Osmolality,Calculated 292 (280-300); Potassium 4.6 mEq/L (3.5-5.1); Sodium 136 mEq/L (136-145); eGFR For African Americans > 60 (> 60); eGFR For Non-African Americans 54 (> 60)
[2020-11-21] MEDS: Insulin LISPRO 300 UNITS/3 ML VIAL SUBQ SCH ×4 (09:10→22:30)
[2020-11-21] MEDS ORDERED: Gadolinium Contrast Agent (WT Based) IV PRN ×2 (16:05→19:50)
[2020-11-21] MEDS: Aspirin Enteric Coated 325 MG Tablet PO SCH (16:29)
[2020-11-21] MEDS ORDERED: Albuterol 2.5 MG/3 ML NEBULIZER IH PRN (18:20)
[2020-11-21] MEDS: Budesonide/Formoterol 160/4.5 1 PUFF INH IH SCH (19:29)
[2020-11-21] MEDS ORDERED: Isovue-370 500 ML BOTTLE IVP ONE ×2 (19:59→20:09)
[2020-11-21] MEDS: carvediloL 6.25 MG TABLET PO SCH (22:29)
[2020-11-21] MEDS: Gabapentin 300 MG CAPSULE PO SCH (22:29)
[2020-11-22] MEDS: Levothyroxine 25 MCG TABLET PO SCH (06:29)
[2020-11-22] MEDS: Insulin LISPRO 300 UNITS/3 ML VIAL SUBQ SCH ×4 (07:46→20:21)
[2020-11-22] MEDS: Aspirin Enteric Coated 325 MG Tablet PO SCH (09:16)
[2020-11-22] MEDS: amLODIPine 5 MG TABLET PO SCH (09:16)
[2020-11-22] MEDS: carvediloL 6.25 MG TABLET PO SCH ×2 (09:16→20:05)
[2020-11-22] MEDS: Multivit/Ca/Min/Fe/FA 1 TAB TABLET PO SCH (09:17)
[2020-11-22] MEDS: Gabapentin 300 MG CAPSULE PO SCH ×3 (09:17→20:05)
[2020-11-22] MEDS: Budesonide/Formoterol 160/4.5 1 PUFF INH IH SCH ×2 (10:17→20:33)
[2020-11-23] MEDS: Levothyroxine 25 MCG TABLET PO SCH (06:07)
[2020-11-23] MEDS ORDERED: Ipratropium/Albuterol Neb 3 ML IH PRN (07:56)
[2020-11-23] MEDS: Insulin LISPRO 300 UNITS/3 ML VIAL SUBQ SCH ×4 (08:20→23:07)
[2020-11-23] MEDS: amLODIPine 5 MG TABLET PO SCH (08:21)
[2020-11-23] MEDS: Multivit/Ca/Min/Fe/FA 1 TAB TABLET PO SCH (08:22)
[2020-11-23] MEDS: carvediloL 6.25 MG TABLET PO SCH ×2 (08:22→22:59)
[2020-11-23] MEDS: Gabapentin 300 MG CAPSULE PO SCH ×3 (08:22→22:59)
[2020-11-23] MEDS: Aspirin Enteric Coated 325 MG Tablet PO SCH (08:22)
[2020-11-23] MEDS: Budesonide/Formoterol 160/4.5 1 PUFF INH IH SCH ×2 (10:30→20:10)
[2020-11-23] MEDS: Sennosides/Docusate Sodium TABLET PO SCH ×2 (14:41→22:58)
[2020-11-24] MEDS: Levothyroxine 25 MCG TABLET PO SCH (06:03)
[2020-11-24] MEDS: Aspirin Enteric Coated 325 MG Tablet PO SCH (07:39)
[2020-11-24] MEDS: Multivit/Ca/Min/Fe/FA 1 TAB TABLET PO SCH (07:43)
[2020-11-24] MEDS: carvediloL 6.25 MG TABLET PO SCH (07:43)
[2020-11-24] MEDS: amLODIPine 5 MG TABLET PO SCH (07:43)
[2020-11-24] MEDS: Sennosides/Docusate Sodium TABLET PO SCH (07:43)
[2020-11-24] MEDS: Gabapentin 300 MG CAPSULE PO SCH ×2 (07:43→16:34)
[2020-11-24] MEDS: Budesonide/Formoterol 160/4.5 1 PUFF INH IH SCH (08:10)
[2020-11-24] MEDS: Insulin LISPRO 300 UNITS/3 ML VIAL SUBQ SCH ×3 (08:14→16:34)
[2020-11-24] MEDS ORDERED: Scopolamine Patch 1.5 MG PATCH.TD72 ONE (15:27)
[2020-11-24] MEDS ORDERED: *HR* FentaNYL (PF) 100 MCG/2 ML VIAL ONE (15:34)
[2020-11-24] MEDS ORDERED: *HR* Midazolam HCl 2 MG/2 ML VIAL ONE (15:35)
[2020-11-24] MEDS ORDERED: *HR* Propofol 200 MG/20 ML VIAL IVP ONE (15:36)
[2020-11-24] MEDS ORDERED: *HR* Rocuronium Bromide 50 MG/5 ML VIAL ONE (15:38)
[2020-11-24] MEDS ORDERED: *HR* Succinylcholine 200 MG/10 ML VIAL IVP ONE (15:38)
[2020-11-24] MEDS ORDERED: Lidocaine -MPF 2% 2 ML VIAL ONE (15:38)
[2020-11-24] MEDS ORDERED: Ondansetron 4 MG/2 ML VIAL ONE (15:38)
[2020-11-24] MEDS ORDERED: Dexamethasone 4 MG/ML VIAL ONE (15:38)
[2020-11-24] MEDS ORDERED: *HR* Remifentanil 1 MG VIAL IVP ONE ×2 (15:40→19:47)
[2020-11-24] MEDS ORDERED: Bacitracin 50,000 UNIT, Polymyxin B Sulfate 500,000 UNIT, Sodium Chloride IRRigation 1,... IR ONE ×2 (16:00→16:15)
[2020-11-24] MEDS ORDERED: Acetaminophen IV 1,000 MG/100 ML BAG IVPB ONE (16:26)
[2020-11-24] MEDS ORDERED: Famotidine 20 MG/2 ML VIAL ONE (16:26)
[2020-11-24] MEDS ORDERED: *HR* PHENYLEPHRINE 1,000 MCG/10 ML SYRINGE IVP ONE (17:02)
[2020-11-24] MEDS ORDERED: EPHEDrine 50 MG/ML VIAL ONE (17:12)
[2020-11-24] MEDS ORDERED: *HR* Phenylephrine 10 MG/ML VIAL ONE (19:56)
[2020-11-24] MEDS ORDERED: *HR* FentaNYL (PF) 100 MCG/2 ML VIAL IVP PRN (21:06)
[2020-11-24] MEDS ORDERED: *HR* Metoprolol 5 MG/5 ML VIAL IVP PRN (21:06)
[2020-11-24] MEDS ORDERED: *HR* Labetalol 20 MG/4 ML SYRINGE IVP PRN (21:06)
[2020-11-24] MEDS ORDERED: *HR* HYDROcodone/Acet 5/325 mg TABLET PO PRN (21:06)
[2020-11-24] MEDS ORDERED: Ondansetron 4 MG/2 ML VIAL IVP PRN ×2 (21:06→21:53)
[2020-11-24] MEDS ORDERED: *HR* Metoprolol 5 MG/5 ML VIAL IVP ONE (21:10)
[2020-11-24] MEDS ORDERED: Triamcinolone Acet 0.1% CRM 1 APPL GRAM TP PRN (21:53)
[2020-11-24] MEDS ORDERED: Ringers Solution, Lactated 1,000 ML IVC SCH (21:53)
[2020-11-24] MEDS ORDERED: Acetaminophen 325 MG TABLET PO PRN (21:53)
[2020-11-24] MEDS ORDERED: Naloxone 0.4 MG/ML INJ IVP PRN (21:53)
[2020-11-24] MEDS: Ascorbic Acid 500 MG TABLET PO SCH (22:03)
[2020-11-24] MEDS: Acetaminophen 325 MG TABLET PO PRN (22:03)
[2020-11-24] MEDS: CeFAZolin 2 GM/120 ML BAG IVPB SCH (23:05)
[2020-11-24] MEDS: *HR* HYDROcodone/Acet 5/325 mg TABLET PO PRN (23:37)
[2020-11-25] MEDS ORDERED: *HR* OxyCODONE/APAP 10/325 TABLET PO ONE (01:22)
[2020-11-25] MEDS: Cholecalciferol (D-3) 1,000 UNIT (25MCG) TABLET PO SCH (07:45)
[2020-11-25] MEDS: Cyanocobalamin (B-12) 1,000 MCG TABLET PO SCH (07:46)
[2020-11-25] MEDS: CeFAZolin 2 GM/120 ML BAG IVPB SCH (07:46)
[2020-11-25] MEDS: *HR* HYDROcodone/Acet 5/325 mg TABLET PO PRN ×3 (07:50→21:30)
[2020-11-25] MEDS ORDERED: polyethylene glycoL 3350 17 GM POWD.PACK PO SCH (09:00)
[2020-11-25] MEDS: polyethylene glycoL 3350 17 GM POWD.PACK PO SCH (11:39)
[2020-11-25] MEDS: Ondansetron 4 MG/2 ML VIAL IVP PRN ×2 (13:26→21:29)
[2020-11-25] MEDS: carvediloL 6.25 MG TABLET PO SCH (15:46)
[2020-11-25] MEDS ORDERED: Budesonide/Formoterol 80/4.5 1 PUFF INH IH SCH (22:00)
[2020-11-25] MEDS: Budesonide/Formoterol 160/4.5 1 PUFF INH IH SCH (22:15)
[2020-11-26] MEDS: Acetaminophen 325 MG TABLET PO PRN ×2 (00:50→22:02)
[2020-11-26] MEDS: *HR* HYDROcodone/Acet 5/325 mg TABLET PO PRN ×3 (03:12→18:28)
[2020-11-26] MEDS: carvediloL 6.25 MG TABLET PO SCH ×2 (08:20→18:28)
[2020-11-26] MEDS: polyethylene glycoL 3350 17 GM POWD.PACK PO SCH (08:20)
[2020-11-26] MEDS: Cyanocobalamin (B-12) 1,000 MCG TABLET PO SCH (08:21)
[2020-11-26] MEDS: Cholecalciferol (D-3) 1,000 UNIT (25MCG) TABLET PO SCH (08:21)
[2020-11-26] MEDS: Budesonide/Formoterol 160/4.5 1 PUFF INH IH SCH ×2 (08:26→20:41)
[2020-11-26] MEDS ORDERED: Lactulose Oral Soln 20 GM/30 ML UDC PO ONE (15:39)
[2020-11-26] MEDS: Ascorbic Acid 500 MG TABLET PO SCH (20:25)
[2020-11-26] MEDS: Ondansetron 4 MG/2 ML VIAL IVP PRN (21:35)
[2020-11-27] MEDS: *HR* HYDROcodone/Acet 5/325 mg TABLET PO PRN ×2 (01:51→13:00)
[2020-11-27] MEDS: Budesonide/Formoterol 160/4.5 1 PUFF INH IH SCH (07:54)
[2020-11-27] MEDS: Cyanocobalamin (B-12) 1,000 MCG TABLET PO SCH (07:58)
[2020-11-27] MEDS: Cholecalciferol (D-3) 1,000 UNIT (25MCG) TABLET PO SCH (07:58)
[2020-11-27] MEDS: Acetaminophen 325 MG TABLET PO PRN (07:59)
[2020-11-27] MEDS: carvediloL 6.25 MG TABLET PO SCH (07:59)
[2020-11-27] MEDS: polyethylene glycoL 3350 17 GM POWD.PACK PO SCH (08:03)
[2020-11-27 09:42] LABS: Red Cell Distribution Width 19.1 % (11.5-14.5)
[2020-11-27 09:43] LABS: Hematocrit 26.7 % (35.3-44.9); Hemoglobin 7.9 g/dL (11.5-15.4); Mean Corpuscular HGB Conc 29.6 g/dL (31.6-35.5); Mean Corpuscular Hemoglobin 25.2 pg (28.0-33.3); Mean Platelet Volume 10.5 fL (9.4-12.4); Platelet Count 198 K/mcL (140-400); Red Blood Count 3.14 M/mcL (3.82-4.97); White Blood Count 6.3 K/mcL (4.3-11.1)
[2020-11-27 09:59] LABS: BUN/Creatinine Ratio 25 (6-26); Blood Urea Nitrogen 26 mg/dL (8-23); Calcium 9.2 mg/dL (8.6-10.3); Carbon Dioxide 28 mEq/L (23-29); Chloride 102 mEq/L (98-107); Glucose 155 mg/dL (70-105); Osmolality,Calculated 292 (280-300); Potassium 4.1 mEq/L (3.5-5.1); Sodium 137 mEq/L (136-145); eGFR For African Americans > 60 (> 60); eGFR For Non-African Americans 53 (> 60)
[2020-11-27 11:33] VITALS: BP 114/76
[2020-11-27] MEDS ORDERED: Ondansetron ODT 4 MG TAB.RAPDIS SL STA (13:20)
[2020-11-27] MEDS ORDERED: Estrogens, Conjugated CREAM 30 GM TUBE VG SCH (21:00)
== END 2020-11-27 14:05 | disposition home or self-care (01) | DRG 472 ==
LOC: EMEROOARM 19:25 → 3NENU 19:25 → SUATTDRO 11-21 02:55 → 3NENU 11-21 03:48 → SUATTDRO 11-22 14:26
PROVIDERS: ADMIT Internal Medicine; ATTEND Family Medicine